=== PATIENT | male | born 1975 | race Caucasian/White ===

== ENCOUNTER 2017-09-05 13:47 | Emergency (ER) | payer OTHER, MEDICAID ==
--- NOTE | 2017-09-05 13:44 | EDPHY ---
H & P Constitutional: Initial Vital Signs Temperature (C) 36.7 C 09/05/17 13:55 Heart Rate 85 09/05/17 13:55 Respiratory Rate 18 09/05/17 13:55 Blood Pressure 148/85 H 09/05/17 13:55 O2 Sat (%) 94 09/05/17 13:55 O2 Delivery Mode Room Air Allergies/Adverse Reactions: Penicillins Allergy (Mild, Verified 03/28/15 01:34) Cephalosporins Allergy (Verified 05/29/15 11:47) haloperidol [From Haldol] Allergy (Verified 09/05/17 18:26) Home Medications: Medication Instructions Recorded Haloperidol Dec IM Q4wk 150 mg IM Q28D 05/04/15 [Haldol Decanoate 100 *IM Q4week*] Ibuprofen [Motrin (*)] 200 mg PO DAILY PRN 05/04/15 Divalproex ER [Depakote ER 500 MG 2,000 mg PO HS #120 tab 06/07/15 (*)] Levothyroxine [Synthroid 88 mcg 88 mcg PO DAILY10 #30 tab 06/07/15 (*)] [place] Carbonate ER [Lithobid 300 1,200 mg PO HS #120 tab 06/07/15 mg (*)] cloZAPine [Clozaril (*)] 350 mg PO HS #105 tab 06/07/15 traZODone [traZODONE 100MG (*)] 100 mg PO HS #30 tab 06/07/15 Medical Decision Making ED Course/Re-evaluation: CHIEF COMPLAINT: M1, off medication HISTORY OF PRESENT ILLNESS: The patient is a 41 y/o male arriving via EMS from the mental health crisis center on an M1 hold for decompensation and grave disability since stopping his medications. He has a history of schizophrenia and multiple mental health admissions to [facility]. He has been off his medications for an unclear amount of time. He was evaluated at the crisis center today and they report he was confused, disorganized, and laughing at inappropriate times. Patient denies any injuries denies loss of consciousness denies any recent trauma. Patient denies co-ingestion. Patient denies suicidal or homicidal behavior. REVIEW OF SYSTEMS: A 10 point review of systems was performed and is negative with the exception of the elements mentioned in the history of present illness. PHYSICAL EXAM: General Appearance: Alert, well hydrated, appropriate, and non-toxic appearing. Obese. Head: Atraumatic without scalp tenderness or obvious injury Eyes: Pupils equal, round, reactive to light and accommodation, EOMI, no trauma , no injection. Nose: Atraumatic, no rhinorrhea, clear. Throat: Mucus membranes moist. Neck: Supple Respiratory: No retractions, no distress, no wheezes, and no accessory muscle use. Lungs are clear to auscultation bilaterally. Cardiovascular: Regular rate and rhythm, no murmurs, rubs, or gallops. Good capillary refill all extremities. Gastrointestinal: Abdomen is soft, nontender, non-distended, no masses, no rebound, no guarding, no peritoneal signs. Musculoskeletal: Normal active ROM of all extremities, atraumatic. Neurological: Alert, appropriate, and interactive. The patient has non-focal cranial nerves, motor, sensory, and cerebellar exam. Skin: No rashes, good turgor, no nodules on palpation. PAST MEDICAL HISTORY: Schizophrenia PAST SURGICAL HISTORY: Noncontributory SOCIAL HISTORY: On state-ordered medications and treatments. Disabled. DIFFERENTIAL DIAGNOSIS: The differential diagnosis for the patient's depression included but was not limited to functional and major depression, situational depression, medication side effect, drugs, and alcohol abuse. MEDICAL DECISION MAKING: Patient is in no acute distress and is hemodynamically stable. We are awaiting psychiatric team's evaluation. Patient has known history of psychiatric disorders and is here for evaluation. (Yovanny Lopez) I took over care of this patient at 3:00 p.m.. This patient is on an M1 hold for schizophrenia. He has been noncompliant with his medications. He is gravely disabled. He is awaiting behavioral health evaluation at this time. During my emergency department course, the patient has had mild agitation. He is, out of his room. This is easily controlled. He is escorted back without incident by our security. At 3:50 p.m. he was given 10 mg of Zyprexa. At approximately 7:00 p.m. he again was out of his room and mildly agitated. This time he was given another 10 mg of Zyprexa as well as 10 mg of oral Ativan. 11:00 p.m.. No further issues under my care. The patient is to be admitted. Destination at this time is unclear. Care turned over to Dr. Arya Paiz. ( Alex Patino) Other Provider: 2230 care assumed by me from Dr. Patino pending placement. [address] Carroll pending placement. No issues during my care this patient overnight. (Emanuel Paiz) Care assumed at 6:45 a.m. with plan for psychiatric inpatient placement. Schizophrenia with acute psychosis and off medications. Repeat Zyprexa and Valium at 7:30 a.m. for increasing and recurrent agitation. Signed out to Kandace at 1500 with placement pending. (Bert Carroll) 4:15 p.m. the patient was accepted to [facility] by Dr. Vasquez. Transfer paperwork completed. (Wagner Jeronimo) - Data Points Laboratory Results: Laboratory Results 09/05/17 14:43 09/05/17 14:43 Medications Given: Discontinued Medications Diazepam (Valium) 10 mg PO EDNOW ONE Stop: 09/05/17 19:24 Last Admin: 09/05/17 19:31 Dose: 10 mg Diazepam (Valium) 5 mg PO EDNOW ONE Stop: 09/05/17 21:51 Last Admin: 09/05/17 21:54 Dose: 5 mg Diazepam (Valium) 5 mg PO EDNOW ONE Stop: 09/06/17 07:36 Last Admin: 09/06/17 07:46 Dose: 5 mg Nicotine (Nicoderm Cq) 21 mg TD EDNOW ONE Stop: 09/05/17 18:32 Last Admin: 09/05/17 18:45 Dose: 21 mg Olanzapine (Olanzapine) 10 mg PO ONCE ONE Stop: 09/05/17 15:49 Last Admin: 09/05/17 15:55 Dose: 10 mg Olanzapine (Olanzapine) 10 mg PO ONCE ONE Stop: 09/05/17 19:20 Last Admin: 09/05/17 19:31 Dose: 10 mg Olanzapine (Olanzapine) 10 mg PO ONCE ONE Stop: 09/06/17 07:35 Last Admin: 09/06/17 07:46 Dose: 10 mg Ondansetron HCl (Zofran Odt) 4 mg PO EDNOW ONE Stop: 09/05/17 22:08 Last Admin: 09/05/17 22:09 Dose: 4 mg Departure - Departure Disposition: Other Psych, Not [facility] Clinical Impression: Schizophrenia, Acute psychosis Condition: Good Referrals: NONE *PRIMARY CARE P,. [Primary Care Provider] - As per Instructions Report Scribed for: Yovanny Lopez Report Scribed by: Gale Avendaño Date of Report: 09/05/17 Time of Report: 13:48
[2017-09-05 14:50] LABS: PLATELET COUNT 338 10^3/uL (150-400)
[2017-09-05] MEDS ORDERED: OLANZapine 5 MG TAB PO ONE ×2 (15:48→19:19)
[2017-09-05] MEDS ORDERED: NICOTINE 21 MG/24 HR PATCH TD ONE (18:31)
[2017-09-05] MEDS ORDERED: DIAZEPAM 5 MG TAB PO ONE ×2 (19:23→21:50)
[2017-09-05] MEDS ORDERED: ONDANSETRON DISINTEGRATING 4 MG TAB PO ONE (22:07)
[2017-09-06] MEDS ORDERED: OLANZapine 5 MG TAB PO ONE (07:34)
[2017-09-06] MEDS ORDERED: DIAZEPAM 5 MG TAB PO ONE (07:35)
[2017-09-06 08:18] VITALS: TEMP 97.5
[2017-09-06 16:53] VITALS: RESP 16
[2017-09-06 17:21] VITALS: BP 145/92; PULSE 98; O2SAT 98
== END 2017-09-06 17:12 ==
LOC: EDUNIT#
DX: F20.9 Schizophrenia, unspecified (principal)
CPT/HCPCS: 80305; G0480

== ENCOUNTER 2018-04-09 04:45 | Inpatient (IN) | payer OTHER, MEDICAID ==
--- NOTE | 2018-04-09 04:56 | EDPHY ---
H & P Time Seen by Provider: 04/09/18 04:51 HPI/ROS: HPI CHIEF COMPLAINT: Acute psychosis. HISTORY OF PRESENT ILLNESS: 42-year-old male, history of schizoaffective disorder, patient was recently discharged from [facility] on March 16, and had a prolonged ICU course at [facility] with hypoxic respiratory failure, septic shock secondary to pneumonia, required ventilator, had a hypernatremia, acute renal failure requiring dialysis, lithium toxicity. Patient presents to the emergency room from the [facility], on an M1 hold for acute Psyhcosis According to EMS the patient was thought to be drunk initially when police made contact with him in [facility], they brought him to the [facility], where he was found to be not intoxicated, but acting strangely, had a mental health eval, and was placed on an M1 hold and brought here. The patient denies any current complaints upon arrival to the emergency room he states he feels fine. However does appear psychotic. Has pressured speech, and is responding to internal stimuli. Also, patient is on a State Certification. However was also placed on an M1 hold this evening. Still needs a formal eval. Past Medical History: Significant past medical history for hypertension, hyperlipidemia, GERD, schizoaffective disorder, bipolar recent hospitalization in February with respiratory failure, renal failure, requiring intubation, with lithium toxicity. Past Surgical History: No recent surgery Social History: Patient denies drugs or alcohol. Does smoke tobacco. Family History: Noncontributory ROS REVIEW OF SYSTEMS: Limited due to patient's mental state Exam Constitutional triage nursing summary reviewed, vital signs reviewed, awake/ alert. Eyes normal conjunctivae and sclera, EOMI, PERRLA. HENT normal inspection, atraumatic, moist mucus membranes, no epistaxis, neck supple/ no meningismus, no raccoon eyes. Respiratory clear to auscultation bilaterally, normal breath sounds, no respiratory distress, no wheezing. Cardiovascular rate normal, regular rhythm, no murmur, no edema, distal pulses normal. Gastrointestinal soft, non-tender, no rebound, no guarding, normal bowel sounds, no distension, no pulsatile mass. Genitourinary no CVA tenderness. Musculoskeletal no midline vertebral tenderness, full range of motion, no calf swelling, no tenderness of extremities, no meningismus, good pulses, neurovascularly intact. Skin pink, warm, & dry, no rash, skin atraumatic. Neurologic awake, alert and oriented x 3, AAOx3, moves all 4 extremities equally, motor intact, sensory intact, CN II-XII intact, normal cerebellar, normal vision, normal speech. Psychiatric acutely psychotic, responding to internal stimuli Heme/Lymph/Immune no lymphadenopathy. Differential Diagnosis: Includes but is not limited to in a particular order acute psychosis, bipolar disorder, schizoaffective disorder, electrolyte disturbance, infection Medical Decision Making: Plan for this patient blood draw for medical clearance , patient on M1 hold. He will need mental health evaluation. Most likely need inpatient psychiatric stabilization. Re-evaluation: 0700: Patient medically cleared. Here with Pyschosis. Signed over to Dr. Kelly at 7am. Pending MH Placement. Possibly 3N this morning. Source: Patient, EMS - Personal History Tetanus Vaccine Date: 2014 - Medical/Surgical History Hx Asthma: No Hx Chronic Respiratory Disease: No Hx Diabetes: No Hx Cardiac Disease: No Hx Renal Disease: No Hx Cirrhosis: No Hx Alcoholism: Yes Hx HIV/AIDS: No Hx Splenectomy or Spleen Trauma: No Other PMH: psych, schizoaffective/etoh, appy, oral surgery, tachycardia, hypothyroidism - Social History Smoking Status: Current every day smoker Constitutional: Initial Vital Signs Temperature (C) 36.5 C 04/09/18 05:13 Heart Rate 110 H 04/09/18 05:13 Respiratory Rate 18 04/09/18 05:13 Blood Pressure 136/92 H 04/09/18 05:13 O2 Sat (%) 94 04/09/18 05:13 O2 Delivery Mode Room Air Allergies/Adverse Reactions: Penicillins Allergy (Mild, Verified 03/28/15 01:34) Cephalosporins Allergy (Verified 05/29/15 11:47) haloperidol [From Haldol] Allergy (Verified 09/05/17 18:26) Home Medications: Medication Instructions Recorded Haloperidol Dec IM Q4wk 150 mg IM Q28D 05/04/15 [Haldol Decanoate 100 *IM Q4week*] Ibuprofen [Motrin (*)] 200 mg PO DAILY PRN 05/04/15 Divalproex ER [Depakote ER 500 MG 2,000 mg PO HS #120 tab 06/07/15 (*)] Levothyroxine [Synthroid 88 mcg 88 mcg PO DAILY10 #30 tab 06/07/15 (*)] [place] Carbonate ER [Lithobid 300 1,200 mg PO HS #120 tab 06/07/15 mg (*)] cloZAPine [Clozaril (*)] 350 mg PO HS #105 tab 06/07/15 traZODone [traZODONE 100MG (*)] 100 mg PO HS #30 tab 06/07/15 Medical Decision Making - Data Points Laboratory Results: Laboratory Results 04/09/18 04:45 04/09/18 04:45 04/09/18 04/09/18 04/09/18 05:10 04:45 04:45 WBC 10.27 10^3/uL H 10^3/uL (3.80-9.50) RBC 4.70 10^6/uL 10^6/uL (4.40-6.38) Hgb 14.7 g/dL g/dL (13.7-17.5) Hct 43.3 % % (40.0-51.0) MCV 92.1 fL fL (81.5-99.8) MCH 31.3 pg pg (27.9-34.1) MCHC 33.9 g/dL g/dL (32.4-36.7) RDW 16.8 % H % (11.5-15.2) Plt Count 274 10^3/uL 10^3/uL (150-400) MPV 9.0 fL fL (8.7-11.7) Neut % (Auto) 77.6 % H % (39.3-74.2) Lymph % (Auto) 13.8 % L % (15.0-45.0) [place] % (Auto) 5.9 % % (4.5-13.0) Eos % (Auto) 0.1 % L % (0.6-7.6) Baso % (Auto) 0.8 % % (0.3-1.7) Nucleat RBC Rel Count 0.0 % % (0.0-0.2) Absolute Neuts (auto) 7.97 10^3/uL H 10^3/uL (1.70-6.50) Absolute Lymphs (auto) 1.42 10^3/uL 10^3/uL (1.00-3.00) Absolute Monos (auto) 0.61 10^3/uL 10^3/uL (0.30-0.80) Absolute Eos (auto) 0.01 10^3/uL L 10^3/uL (0.03-0.40) Absolute Basos (auto) 0.08 10^3/uL 10^3/uL (0.02-0.10) Absolute Nucleated RBC 0.00 10^3/uL 10^3/uL (0-0.01) Immature Gran % 1.8 % H % (0.0-1.1) Immature Gran # 0.18 10^3/uL H 10^3/uL (0.00-0.10) Sodium 140 mEq/L mEq/L (135-145) Potassium 4.0 mEq/L mEq/L (3.3-5.0) Chloride 103 mEq/L mEq/L (97-110) Carbon Dioxide 28 mEq/l mEq/l (22-31) Anion Gap 9 mEq/L mEq/L (8-16) BUN 12 mg/dL mg/dL (7-23) Creatinine 1.0 mg/dL mg/dL (0.7-1.3) Estimated GFR > 60 Glucose 117 mg/dL H mg/dL (70-100) Calcium 9.4 mg/dL mg/dL (8.5-10.4) Urine Opiates Screen NEGATIVE (NEGATIVE) Urine Barbiturates NEGATIVE (NEGATIVE) Valproic Acid 38.6 mcg/mL L mcg/mL (50.0-150.0) Ur Phencyclidine Scrn NEGATIVE (NEGATIVE) Ur Amphetamine Screen NEGATIVE (NEGATIVE) U Benzodiazepines Scrn NEGATIVE (NEGATIVE) [place] < 0.2 mEq/L L mEq/L (0.6-1.2) Urine Cocaine Screen NEGATIVE (NEGATIVE) U Marijuana (THC) Screen NEGATIVE (NEGATIVE) Ethyl Alcohol < 10 mg/dL mg/dL (0-10) Departure - Departure Clinical Impression: Acute psychosis Condition: Fair Referrals: Patient,NotPresent [Primary Care Provider] - As per Instructions
[2018-04-09 05:06] LABS: PLATELET COUNT 274 10^3/uL (150-400)
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
--- NOTE | 2018-04-09 08:17 | ASMTTCLDSP ---
TLC Discharge Disposition Disposition: Answers: Admit Disposition Notes: Notes: Admit 3N. Discharge Concerns/Recommendations: Notes: In consultation with [facility] ED physician, Sundar Garcia MD and on-call psychiatrist, Odin Trent MD, both concurred that pt appears to meet 27-65 criteria requiring psychiatric hospitalization as pt appears to gravely disabled due to a mental illness condition. Pt was given (but declined to sign) the 3N prohibited belongings list while in the ED. Was patient given the Answers: Yes Inpatient Behavioral Health Prohibited Belongings List while in the ED? For inpatient Odin Trent MD admission, the following psychiatrist agreed to accept patient for admission to Behavioral Health ([facility]): Type of Hold: Answers: M1/72-hour Hold Hold initiated by: Answers: Psychiatrist Date Signed: 04/09/2018 08:16 AM Electronically Signed By:Tio Sun
--- NOTE | 2018-04-09 11:43 | ASMTBHMTP ---
Master Treatment Plan Master Treatment Plan Answers: Mood Instability with for: Psychosis Date: 04/09/2018 Diagnosis on Admission: Schizoaffective Disorder, Bipolar Type 295.70 (F25.0) Expected length of stay: 5-7 DAYS Reason for admission: Notes: The patient stated, "Bipolar d/o. Schizophrenia... Mood swings, headaches, dreams... Halfway 10 days... My original name is Rory Tolbert." Following his name, the patient listed several numbers. The patient denied any charges. During his admission to the unit, he reported his reason as "enthusiasm for changing the past." He also stated that he wanted to "become superman." The patient's speech was nonsensical, delayed, and accompanied by occasional laughter. Patient's stated presenting problems: Notes: unable to assess Patient's goals for treatment: Notes: Unable to assess; the patient reported to "...Walk the dog." Patient's strengths: Notes: The patient stated, riding bikes and walking down..." The patient's speech was mumbled, garbled, and disorganized. Identify supports outside of hospital: Notes: The patient stated, "[facility]." His reported provider is Jesuista Poon MD. This pattern chart writer unable to assess whether the patient has a caser or therapist OP. Discharge criteria: Notes: The patient will demonstrate more stable mood by discharge. Initial disposition plan/considerations: Notes: The patient was observed laughing as he stated, "[place], [place]." This pattern chart writer asked the patient why he wanted to go to [place] and he responded "...This afternoon." Master Treatment Plan Required Signatures Psychiatrist signature: Answers: Odin Trent MD: RN on-shift signature: Answers: RN: Patient signature: Answers: Patient: Date Signed: 04/09/2018 11:37 AM Electronically Signed By:Noreen Mcgarry
[2018-04-09] MEDS: NICOTINE POLACRILEX 2 MG GUM B PRN (12:48)
[2018-04-09] MEDS ORDERED: MAG HYDROX/AL HYDROX/SIMETH 30 ML UDCUP PO PRN (12:56)
[2018-04-09] MEDS ORDERED: ACETAMINOPHEN 325 MG TAB PO PRN (12:56)
[2018-04-09] MEDS ORDERED: OLANZapine DISINTEGR 10 MG TAB PO PRN (12:56)
[2018-04-09] MEDS: LORazepam 0.5 MG TAB PO PRN (15:57)
--- NOTE | 2018-04-09 16:23 | BCON ---
INTERNAL MEDICINE CONSULTATION DATE OF CONSULTATION: 04/09/2018 REFERRING PHYSICIAN: Odin Trent MD REASON FOR REFERRAL: Medical clearance for inpatient behavioral health stay. HISTORY OF PRESENT ILLNESS: This patient presented to the [facility] Emergency Department today early in the morning. He had been at the alcohol recovery center for presumed withdrawal, but was noted to be psychotic rather than in alcohol withdrawal, so he was transferred to the emergency department for further evaluation. He appeared psychotic in the emergency department with pressured speech and responding to internal stimuli. He was evaluated by the mental health team and admitted for further psychiatric care. PAST MEDICAL HISTORY: 1. Schizoaffective disorder. 2. Likely COPD. 3. Pneumonia with hypoxic respiratory failure, approximately 1-2 months ago. 4. [place] toxicity. 5. Obesity. 6. Gastroesophageal reflux disorder. 7. Hypertension. PAST SURGICAL HISTORY: He has not any surgeries. MEDICATIONS: 1. Cogentin. 2. Clozaril. 3. Haldol decanoate. 4. Valproic acid. 5. Budesonide/formoterol inhaler. 6. Fluticasone inhaler, but this may have been nasal. 7. MiraLAX. 8. Senna. 9. Omeprazole. 10. Levothyroxine. 11. Fish oil. 12. Ipratropium. 13. Furosemide. ALLERGIES: Listed to penicillins, cephalosporins and haloperidol. However, the case loader operator's note reports that he may not truly have a penicillin and cephalosporin allergy. SOCIAL HISTORY: He lives alone in [address] in [place]. He is a smoker. He has a history of polysubstance abuse. He is not working due to psychiatric disability. FAMILY HISTORY: Noncontributory. REVIEW OF SYSTEMS: Limited. His responses are often off topic and difficult to understand. He denies cough or dyspnea. He denies pain, fever, or chills. PHYSICAL EXAM: VITAL SIGNS: Blood pressure is 139/101, heart rate is 115, respiratory rate is 14, oxygen saturation is 94% on room air. Temperature is 36.8 degrees centigrade. His weight is 129.3 kg for a body mass index of 31. GENERAL: This is an unkempt, obese man, sitting up on his bed, cooperative and in no acute distress. HEENT: Extraocular movements are intact. Pupils are equal, round, reactive to light. Mucous membranes are moist. Dentition is in good condition. He has a slightly crowded airway, Mallampati class 2. He has a very congested sounding voice. NECK: Supple. HEART: Regular rate and rhythm with no murmurs, rubs, or gallops. LUNGS: Clear to auscultation bilaterally. ABDOMEN: Obese and benign. EXTREMITIES: There is no cyanosis, clubbing, or edema. NEUROLOGIC: He is alert. Orientation was not checked. Cranial nerves 2-12 are grossly intact. There is no focal weakness. Sensation is intact to light touch and gait is within normal limits. LABORATORY STUDIES: Drawn in the emergency department: CBC showed an elevated white blood cell count at 10.27. It was predominantly neutrophils. There was a slight left shift with 1.8% immature granulocytes. Otherwise, it was overall within normal limits. Serum chemistry showed an elevated glucose at 117, otherwise renal function was normal and electrolytes were normal. Toxicology screen in the serum showed measurable but subtherapeutic valproic acid level at 38.6. There was no lithium and ethyl alcohol was negative. Toxicology screen in the urine was negative for any substances of abuse. ASSESSMENT/RECOMMENDATIONS: 1. Mental health issues pending further evaluation and management per Psychiatry and the mental health team. 2. Obesity, consider exercising caution regarding medications which could cause further weight gain, however, his psychosocial stabilization takes priority at present. 3. Tobacco dependence syndrome. He was encouraged to stop smoking. 4. Hypertension, previously on lisinopril. Blood pressure is slightly elevated and not mandating treatment at present. If he is not to be on lithium in the future, lisinopril would be a good choice for him. Otherwise, would recommend amlodipine for its relatively few side effects and a few drug interactions. Would start a low-dose, for instance, 2.5 mg daily if he continues to have elevated blood sugars. 5. Tachycardia of unclear etiology. He may have some dehydration, though this was not reflected on his basic metabolic profile. 6. History of asthma versus COPD. He had no hypoxia. Consider restarting inhalers. Would advise the budesonide/formoterol combination plus p.r.n. ipratropium. Would not concurrently use fluticasone inhaler unless he was using it as a nasal preparation. 7. Tachycardia of unclear etiology. Advises monitoring fluid intake. If it persists, then further evaluation can be carried out. His heart rate was regular, so it is unlikely that he has atrial fibrillation. I see no medical contraindications to this patient's continued stay on the inpatient behavioral health unit or to any psychiatric medications or procedures. Thank you very much for including me in the care of this patient and please do not hesitate to contact me or the hospitalist service should there be need for further medical evaluation. /[id number]/MODL MTDD
--- NOTE | 2018-04-09 17:18 | BAPA ---
DATE OF SERVICE: 04/09/2018 REASON FOR ADMISSION: The patient is a 42-year-old male with a history of schizoaffective disorder. He presented to our emergency department via ambulance after he had initially gone to the walk-in clinic through [facility]. I discussed the case with Dr. Poon, who is al s outpatient psychiatrist, and she stated that he had been declining for about a week, and they could not really understand why. He had been more disorganized and forgetful, and they did some home visi ts with him. His home was a little more untidy than usual as he typically keeps a very neat apartmen t. They also did notice some alcohol containers in the home, which would represent a change from his recent sobriety. They did not, however, identify this as a primary problem. The patient was to [facility] over for his daily medications, and when he arrived, he was quite disorganized. They took him to [facility] walk-in clinic in order to perhaps watch him overnight, he became increasingly disorganized. He w as unable to sit still and appeared confused, and they brought him to the emergency department. They were concerned that perhaps he had some metabolic issues as he had presented in a similar way about 6 weeks ago and actually had pneumonia, sepsis and renal failure. This time, however, he checked out medically with normal labs and no referable complaints. He was then evaluated by [facility], who found him to be very disorganized, unable to give any meaningful history or really communicate in a meaningful way. Placed him on an M1 hold and then transferred him for further evaluation. This morning, he is somewhat agitated, having a hard time sitting still. He comes in and out of his room and takes off his hospital gown, unsnapping it and then being unable to put it back together. I attempted to help him with this, and I could not put it back together either, so it is confusing, but he seemed to be a bit more confused. We were able to get him a shirt after he walked out on the unit wearing only a p air of shorts. He interacted well with me, being able to speak in some sentences intelligibly, thoug h was not particularly able to stay on task or discuss his treatment, per se. He is unable to tell m e exactly why he is here or give me any opinion from his viewpoint what is going on with him. He ind icates that he wants to be compliant with his medications. I spoke with Dr. Poon at length, and we s orted out his current outpatient medications and will restart those. PAST PSYCHIATRIC HISTORY: Significant for a long history of severe mental illness. He has had upwar ds of 20 admissions to [facility] and a number of admissions to our facility as well. His last admis chemo to [facility] was in January 2014, when he was having some suicidal thoughts. He has 3 previous fritz icide attempts. He has had numerous previous medication trials, and the chart lists prior treatments with Stelazine, Zyprexa, Trilafon, Abilify, Valium, lithium, Eskalith and Ativan. It is of note cristino t he was on lithium for a long time until his renal failure 6 weeks ago, at which time it was stopped . ALLERGIES: Listed to penicillin, cephalosporins, and haloperidol. CURRENT MEDICATIONS: Include Synthroid 125 mcg daily, lisinopril 5 mg daily, haloperidol decanoate 2 00 mg every 4 weeks (last given on 04/07/2018), omeprazole 20 mg daily, Symbicort 1 puff b.i.d., flut icasone 100 mcg daily, and Atrovent 2.5 mL every 6 hours. PAST MEDICAL HISTORY: Significant for recent pneumonia, renal failure, and sepsis. He has a history of hypertension, obesity and COPD. SOCIAL HISTORY: Patient is single. He lives alone in supportive housing in [place]. He [facility] on a daily basis through the ACT team in order to monitor his medica tions and condition. He apparently cares for himself well when he is well, though may recently have been deteriorating. He grew up in [place] and graduated high school from [employer] [employer]. The albina washington's parents and his brother apparently are active in his life, though the extent of this is unkn own to me. The patient receives social security disability income. SUBSTANCE ABUSE HISTORY: Patient has a history of previous heavy alcohol use, though apparently had been sober for some time. He also has used cocaine in the past, but not since 2014. He also has a h istory of methamphetamine use, though it is unclear the status of this. He smokes at least 3 packs o f cigarettes per day. FAMILY HISTORY: Patient's brother and father are reported to have "some mental illness." Exact natu re of this is unknown. ADMISSION LABORATORY: CBC shows a white count elevated at 10.27, with neutrophils up at 77.6%, other cole normal. Serum chemistries are normal, with the exception of a nonfasting glucose of 117. Urina lysis shows no substances of abuse. [place] was less than detectable, and Depakote was 38.6. Alcoho l was undetectable. MENTAL STATUS EXAMINATION: Reveals an obese, poorly groomed male. He is somewhat agitated , pacing, and unable to sit still. He makes good eye contact and seems to recognize me from previous admissions. His speech is somewhat over produced, mumbled, and low in tone. He is difficult to und erstand, but is forming intelligible sentences at times. His affect is blunted, stable, and appropri ate. His mood is described as "just fine." His thought process is disorganized. His thought conten t reveals no overt psychosis, though is very difficult to say. There may be some internal preoccupat ion and/or hallucination. He does not answer questions in regard to orientation or memory. He does not appear to be overtly delirious, though a low-level delirium is something that Dr. Poon questions. He voices no thoughts of suicide, homicide, or violence. His insight and judgment appear to be imp aired. IMPRESSION: Schizoaffective disorder, bipolar type, most recent episode manic, severe, with psychosi s; possible low-level delirium; multiple medical issues; recent severe life-threatening medical condi tions; chronic illness, recurrent illness. The patient is a 42-year-old male with a history of chronic and severe mental illness. He presents at this time having decompensated with no specific identifiable cause. He may have relapsed on alcohol, but it is unclear whether this would really cause this level of decompensation. He has been, by all reports, compliant with his medications, or at least as compliant as normal. The lithiu m was discontinued when he was at [facility] recently, and Haldol was increased to 200 mg decanoate monthly. Clozapine was decreased from 350 to 300, and Dr. Poon states that Dr. Ashu abbottes that he is extremely sensitive to his clozapine being decreased. Dr. Poon does not believe t he Depakote is a particularly integral part of his overall stability, and his current dose is certain ly below the standard anti-manic dose. It is likely complimentary and will leave it where it is for now. PLAN: 1. [facility] hold. I believe that he has a lo ng-term certification and will be transferred, and we will change his legal status when we receive th at paperwork. 2. Continue patient's outpatient medications as listed above, increasing the clozapine to [address] Gu's input in regard to his physical status and the need for any followup tests, in cluding chest x-ray. 4. Estimated length of stay is 5-7 days. /[id number]/MODL
[2018-04-09] MEDS: FLUTICASONE/SALMETER 250/50MCG DISKUS IH SCH (20:03)
[2018-04-09] MEDS: IPRATROPIUM HFA INHALER IH SCH (20:03)
[2018-04-09] MEDS: cloZAPine 100 MG TAB PO SCH (20:08)
[2018-04-09] MEDS ORDERED: FLUTICASONE/SALMETER 100/50MCG DISKUS IH SCH (21:00)
[2018-04-09] MEDS ORDERED: BUDESONIDE/FORMOTEROL 160/4.5 60 PUFFS/MDI IH SCH (21:00)
[2018-04-10] MEDS: IPRATROPIUM HFA INHALER IH SCH ×4 (05:18→21:12)
[2018-04-10] MEDS: LEVOTHYROXINE 125 MCG TAB PO SCH (05:18)
[2018-04-10] MEDS: LORazepam 0.5 MG TAB PO PRN (08:34)
[2018-04-10] MEDS: FLUTICASONE/SALMETER 250/50MCG DISKUS IH SCH ×2 (08:51→21:12)
[2018-04-10] MEDS: TIOTROPIUM INHALER 18 MCG/DOSE 5 DOSE/MDI IH SCH (08:52)
[2018-04-10] MEDS: LISINOPRIL 5 MG TAB PO SCH (08:54)
[2018-04-10] MEDS: PANTOPRAZOLE SODIUM 40 MG TAB PO SCH (08:54)
--- NOTE | 2018-04-10 09:37 | PDMN ---
Medical Necessity Medical necessity: [facility] [id number] Schizophrenia Spectrum Disorders, Adult: Inpatient Care: 42 y/o w/ schizoaffective d/o, bipolar type, most recent episode manic, severe, w/ psychosis, possible low level delirium, multi pmedical issues, recent severe life threatening medical conditions, chronic illness, recurrent illness. M1 hold.
[2018-04-10] MEDS: NICOTINE POLACRILEX 2 MG GUM B PRN (11:11)
--- NOTE | 2018-04-10 11:58 | ASMTCMCOM ---
CM Note CM Note Notes: Pt. reports feeling "okay" today. Pt. stated he didn't sleep so well. Pt. stated he woke up angry, adding sometimes he confuses his dreams and reality. Pt. stated he is eating well. Pt. reports no issues with his current medications. Pt. stated he has attended some groups. Pt. denied SI, HI, and AVH. Pt. reports feeling paranoia "about not leaving here". Pt. was more oriented today verses yesterday, but not fully oriented yet. Pt. presents as alert, calm, friendly with staff, disorganized, and lacking insight. Staff report pt. sleeping 6 hours and being medication complaint. Pt. accidentally walked into the wrong room last night. Pt. has been given a new room with several name signs on the door. Pt. became upset this morning during breakfast, but was able to eventually be redirected. Date Signed: 04/10/2018 11:48 AM Electronically Signed By:Urvashi Qiu
--- NOTE | 2018-04-10 14:54 | SOAPPROG ---
SOAP Progress Note Assessment/Plan: Assessment: Plan: 04/10/18 14:54 Psychosis: Improving. CCM. Subjective: Pt seen, discussed with staff. Remains disorganized. Was reportedly angry and verbally aggressive this morning towards staff. He is calmer when I interview him, able to discuss his treatment. Voices no c/o's. Compliant with meds. Objective: Vital Signs Temp Pulse Resp BP Pulse Ox 36.4 C 117 H 16 131/80 H 91 L 04/10/18 02:46 04/10/18 02:46 04/10/18 02:46 04/10/18 02:46 04/10/18 02:46 MSE: Disheveled, agitated. Able to sit and talk for 10-15". Speech remains rapid, mumbled. Affect is labile, angry, laughing, crying. Mood is "good." TP disorganized. TC reveals paranoia, AH's/internal preoccupation. - Time Spent With Patient Time Spent With Patient: 15" ICD10 Worksheet Patient Problems: Problems Problem Status Onset Acute psychosis Acute Abscess of neck Active Hypothyroidism Active
[2018-04-10] MEDS: cloZAPine 100 MG TAB PO SCH (21:10)
[2018-04-11] MEDS: IPRATROPIUM HFA INHALER IH SCH ×4 (05:34→20:38)
[2018-04-11] MEDS: LEVOTHYROXINE 125 MCG TAB PO SCH (05:35)
[2018-04-11] MEDS: PANTOPRAZOLE SODIUM 40 MG TAB PO SCH (08:39)
[2018-04-11] MEDS: LISINOPRIL 5 MG TAB PO SCH (08:39)
[2018-04-11] MEDS: FLUTICASONE/SALMETER 250/50MCG DISKUS IH SCH ×3 (08:40→20:37)
[2018-04-11] MEDS: TIOTROPIUM INHALER 18 MCG/DOSE 5 DOSE/MDI IH SCH (08:40)
--- NOTE | 2018-04-11 14:23 | SOAPPROG ---
SOAP Progress Note Assessment/Plan: Assessment: 42yo obese CM with long hx of Schizoaffective d/o and mult psychiatric hospitalizations. Noted to be psychotic recently and admitted for restabilization. Was medically hospitalized last month with Li toxicity, acute respiratory and renal failure. 04/11/18 14:28 slept 7hr MSE: Disheveled, morbid obesity, cooperative with interview. noted to be diaphoretic and when this was noted, pt wiped forehead and abruptly asked "did you just do that to me?" admits feeling a bit hot. denied any other physical complaints of SOB or CP, altho occasionally burping, speech at times incr rate and mumbles but intelligible with effort and will sometimes repeat response for clarification. affect full, mood "positive", thoughts disorganized, paranoid, and noted responding to internal stimuli on unit while walking around, although not during interview. talked about his identity not being a secret, uses 3 different names, and feels scared to go home "because I sleep walk and snore", but does not feel he needs to be in hospital- "they are experimenting with me because I lied about my psychosis". denies SI or thoughts to harm others. i/i both impaired. PLAN: continue current meds- Clozapine monitor VS Qshift. has multiple medical problems, not always using scheduled inhalers, has been tachycardic denies physical complaints, but has cardiac and respiratory risks Objective: Vital Signs Temp Pulse Resp BP Pulse Ox 36.4 C 117 H 16 131/80 H 91 L 04/10/18 02:46 04/10/18 02:46 04/10/18 02:46 04/10/18 02:46 04/10/18 02:46 Medications Generic Name Dose Route Start Last Admin Trade Name Freq PRN Reason Stop Dose Admin Ipratropium [place] 2 puffs 04/09/18 21:00 04/11/18 12:52 Atrovent Hfa IH 10/06/18 20:59 Not Given QID BARRETT Fluticasone/Salmeterol 1 puffs 04/09/18 21:00 04/11/18 12:52 Advair IH 10/06/18 20:59 Not Given BID BARRETT Clozapine 350 mg 04/09/18 21:00 04/10/18 21:10 Clozaril PO 10/06/18 20:59 350 mg HS BARRETT Levothyroxine Sodium 125 mcg 04/10/18 06:00 04/11/18 05:35 Synthroid PO 10/07/18 05:59 Not Given DAILY AT 6AM BARRETT Lisinopril 5 mg 04/10/18 09:00 04/11/18 08:39 Zestril PO 10/07/18 08:59 5 mg DAILY BARRETT Olanzapine 10 mg 04/09/18 12:56 04/10/18 08:34 Zyprexa Zydis PO 10/06/18 12:55 10 mg Q4H PRN Agitation, Psychosis Pantoprazole Sodium 40 mg 04/10/18 09:00 04/11/18 08:39 Protonix PO 10/07/18 08:59 40 mg DAILY BARRETT Tiotropium [place] 18 mcg 04/10/18 09:00 04/11/18 08:40 Spiriva Handihaler IH 10/07/18 08:59 1 inh DAILY BARRETT - Time Spent With Patient Time Spent With Patient: 20min - Pending Discharge Pending Discharge Within 24 Hours: No Pending Discharge Within 48 Hours: No ICD10 Worksheet Patient Problems: Problems Problem Status Onset Acute psychosis Acute Abscess of neck Active Hypothyroidism Active
[2018-04-11] MEDS: NICOTINE POLACRILEX 2 MG GUM B PRN (15:36)
[2018-04-11] MEDS: cloZAPine 100 MG TAB PO SCH (20:37)
[2018-04-11] MEDS: LORazepam 0.5 MG TAB PO PRN (21:35)
[2018-04-12] MEDS: IPRATROPIUM HFA INHALER IH SCH ×4 (06:00→21:09)
[2018-04-12] MEDS: PANTOPRAZOLE SODIUM 40 MG TAB PO SCH (08:19)
[2018-04-12] MEDS: LISINOPRIL 5 MG TAB PO SCH (08:19)
[2018-04-12] MEDS: FLUTICASONE/SALMETER 250/50MCG DISKUS IH SCH ×2 (09:49→21:08)
[2018-04-12] MEDS: TIOTROPIUM INHALER 18 MCG/DOSE 5 DOSE/MDI IH SCH (09:50)
[2018-04-12] MEDS: LEVOTHYROXINE 125 MCG TAB PO SCH (09:52)
--- NOTE | 2018-04-12 12:31 | ASMTCMCOM ---
CM Note CM Note Notes: Pt. reports feeling "Good. An 8 or 9". Pt. stated he slept "real good", adding "waking up was rough" but pt. couldn't explain why. Pt. stated he would like a larger serving at meals. Pt. stated "I don't know" when asked if he has been going to groups. Pt. reports no issues with his current medications. Pt. denied SI, HI, and paranoia. Pt. stated he is scared of blacking out when asked about any AVH. Pt. presents as alert, difficult to understand as he mumbles, good eye contact, and with a mostly pleasant demeanor. Staff report pt. sleeping 7.5 hours and being medication complaint. Date Signed: 04/12/2018 12:31 PM Electronically Signed By:Urvashi Qiu
[2018-04-12] MEDS: cloZAPine 100 MG TAB PO SCH (20:59)
[2018-04-12] MEDS: LORazepam 0.5 MG TAB PO PRN (22:00)
--- NOTE | 2018-04-12 22:53 | SOAPPROG ---
SOAP Progress Note Assessment/Plan: Assessment: 42yo obese CM with long hx of Schizoaffective d/o and mult psychiatric hospitalizations. Noted to be psychotic recently and admitted for restabilization. Was medically hospitalized last month with Li toxicity, acute respiratory and renal failure. 04/11/18 14:28 slept 7hr MSE: Disheveled, morbid obesity, cooperative with interview. noted to be diaphoretic and when this was noted, pt wiped forehead and abruptly asked "did you just do that to me?" admits feeling a bit hot. denied any other physical complaints of SOB or CP, altho occasionally burping, speech at times incr rate and mumbles but intelligible with effort and will sometimes repeat response for clarification. affect full, mood "positive", thoughts disorganized, paranoid, and noted responding to internal stimuli on unit while walking around, although not during interview. talked about his identity not being a secret, uses 3 different names, and feels scared to go home "because I sleep walk and snore", but does not feel he needs to be in hospital- "they are experimenting with me because I lied about my psychosis". denies SI or thoughts to harm others. i/i both impaired. PLAN: continue current meds- Clozapine monitor VS Qshift. has multiple medical problems, not always using scheduled inhalers, has been tachycardic denies physical complaints, but has cardiac and respiratory risks 04/12/18 15:27 slept 7.5hr. continues mumbling at times, wearing shirt backwards this AM, seemed he may have had some mild trouble swallowing at breakfast this AM but staff felt he was eating fast, and occ refuses scheduled inhalers. eating meals , attending some groups disheveled, unkempt, obese, ambulating steady, good eye contact, readily engaging, speech was intelligible although mumbled at times, mood "I feel good" . affect full, tp/tc- goal directed, but then with illogical statements at times ; denied current AH/VH, but noted with + int stim and talking in audible voice when responding to IS in halls ("He wants you to cut him open in little pieces" as he went down abernathy and entered his room); denied SI or thoughts to harm others, t i/j poor. Denied physical c/o except GERD/reflux. Denied SOB/CP. No diaphoresis noted today. Continues tachycardic. Denied s/e to meds . Clozapine and Depakote mentioned (altho presently just on Cloz. 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 altho noted to not have been restarted on depakote PLAN: cont Clozapine 350mg qhs. does seem to be improving steadily psychiatrically consider ST for swallow eval if further problems noted despite direction to eat more slowly, aspiration risks VS Qshift. has multiple medical problems, not always using scheduled inhalers, has been tachycardic denies physical complaints, but has cardiac and respiratory risks sleep study requested Objective: Vital Signs Temp Pulse Resp BP Pulse Ox 36.8 C 114 H 12 128/87 H 94 04/11/18 14:51 04/12/18 18:26 04/12/18 18:26 04/12/18 18:26 04/12/18 18:26 - Time Spent With Patient Time Spent With Patient: 15min - Pending Discharge Pending Discharge Within 24 Hours: No Pending Discharge Within 48 Hours: No ICD10 Worksheet Patient Problems: Problems Problem Status Onset Acute psychosis Acute Abscess of neck Active Hypothyroidism Active
[2018-04-13] MEDS: IPRATROPIUM HFA INHALER IH SCH ×4 (06:26→21:58)
[2018-04-13] MEDS: PANTOPRAZOLE SODIUM 40 MG TAB PO SCH (08:17)
[2018-04-13] MEDS: LISINOPRIL 5 MG TAB PO SCH (08:17)
[2018-04-13] MEDS: FLUTICASONE/SALMETER 250/50MCG DISKUS IH SCH ×2 (08:18→21:57)
[2018-04-13] MEDS: TIOTROPIUM INHALER 18 MCG/DOSE 5 DOSE/MDI IH SCH (08:18)
[2018-04-13] MEDS: LEVOTHYROXINE 125 MCG TAB PO SCH (09:55)
--- NOTE | 2018-04-13 13:58 | ASMTCMCOM ---
CM Note CM Note Notes: CC checking in with ct. who said that he is doing fine. Ct. has been spending time in the milieu interacting with others. Date Signed: 04/13/2018 01:57 PM Electronically Signed By:Susan Duarte
--- NOTE | 2018-04-13 15:59 | SOAPPROG ---
SOAP Progress Note Assessment/Plan: Assessment: Most recent note from Dr. Couch: Assessment: 42yo obese CM with long hx of Schizoaffective d/o and mult psychiatric hospitalizations. Noted to be psychotic recently and admitted for restabilization. Was medically hospitalized last month with Li toxicity, acute respiratory and renal failure. 04/11/18 14:28 slept 7hr MSE: Disheveled, morbid obesity, cooperative with interview. noted to be diaphoretic and when this was noted, pt wiped forehead and abruptly asked "did you just do that to me?" admits feeling a bit hot. denied any other physical complaints of SOB or CP, altho occasionally burping, speech at times incr rate and mumbles but intelligible with effort and will sometimes repeat response for clarification. affect full, mood "positive", thoughts disorganized, paranoid, and noted responding to internal stimuli on unit while walking around, although not during interview. talked about his identity not being a secret, uses 3 different names, and feels scared to go home "because I sleep walk and snore", but does not feel he needs to be in hospital- "they are experimenting with me because I lied about my psychosis". denies SI or thoughts to harm others. i/i both impaired. PLAN: continue current meds- Clozapine monitor VS Qshift. has multiple medical problems, not always using scheduled inhalers, has been tachycardic denies physical complaints, but has cardiac and respiratory risks 04/12/18 15:27 slept 7.5hr. continues mumbling at times, wearing shirt backwards this AM, seemed he may have had some mild trouble swallowing at breakfast this AM but staff felt he was eating fast, and occ refuses scheduled inhalers. eating meals , attending some groups disheveled, unkempt, obese, ambulating steady, good eye contact, readily engaging, speech was intelligible although mumbled at times, mood "I feel good" . affect full, tp/tc- goal directed, but then with illogical statements at times ; denied current AH/VH, but noted with + int stim and talking in audible voice when responding to IS in halls ("He wants you to cut him open in little pieces" as he went down abernathy and entered his room); denied SI or thoughts to harm others, t i/j poor. Denied physical c/o except GERD/reflux. Denied SOB/CP. No diaphoresis noted today. Continues tachycardic. Denied s/e to meds . Clozapine and Depakote mentioned (altho presently just on Cloz. 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 altho noted to not have been restarted on depakote PLAN: cont Clozapine 350mg qhs. does seem to be improving steadily psychiatrically consider ST for swallow eval if further problems noted despite direction to eat more slowly, aspiration risks VS Qshift. has multiple medical problems, not always using scheduled inhalers, has been tachycardic denies physical complaints, but has cardiac and respiratory risks sleep study requested Plan: 04/13/18 15:53 1. No issues with swallowing noted this AM. Ate 100% of meals w/o difficulty. 2. Slept 5 hrs last night. 3. Patient continues to present confused, disorganized, unable to explain why he 's in hospital. 4. Cont current meds Subjective: MD observed patient playing a game of cards with peers. He did not understand the rules of the game and needed to have them explained to him multiple times. Peers had to tell patient to hold cards closer so peers couldn't see them and to explain what the different suits of cards meant. Eventually patient got frustrated and started tossing cards in air rather than participate in game. Patient presents pleasant and calm. When MD asked what name he would like to be called, patient said, "whatever is most efficient for your records." MD does not observe patient talking to himself or saying outrageous things as noted over w/e by Dr. Couch, which may be a sign that psychosis is improving. However , MD wonders about possible cognitive deficits given his lack of comprehension and inability to explain how he got to hospital. When asked directly about why he was admitted, patient said, "my eyes were crossed." Objective: Vital Signs Temp Pulse Resp BP Pulse Ox 36.8 C 120 H 20 134/90 H 90 L 04/13/18 06:58 04/13/18 06:58 04/13/18 06:58 04/13/18 06:58 04/13/18 06:58 MSE: Affect: Calm, pleasant Mood: "OK" TP: Disorganized, confused, illogical TC: No SI/HI Insight/Judgment: Impaired - Time Spent With Patient Time Spent With Patient: 15" - Pending Discharge Pending Discharge Within 24 Hours: No Pending Discharge Within 48 Hours: No ICD10 Worksheet Patient Problems: Problems Problem Status Onset Acute psychosis Acute Abscess of neck Active Hypothyroidism Active
[2018-04-13] MEDS: cloZAPine 100 MG TAB PO SCH (21:44)
[2018-04-13] MEDS: LORazepam 0.5 MG TAB PO PRN (21:50)
[2018-04-14] MEDS: IPRATROPIUM HFA INHALER IH SCH ×4 (06:37→20:01)
[2018-04-14] MEDS: FLUTICASONE/SALMETER 250/50MCG DISKUS IH SCH ×2 (08:50→20:02)
[2018-04-14] MEDS: PANTOPRAZOLE SODIUM 40 MG TAB PO SCH (08:50)
[2018-04-14] MEDS: TIOTROPIUM INHALER 18 MCG/DOSE 5 DOSE/MDI IH SCH (08:50)
[2018-04-14] MEDS: LISINOPRIL 5 MG TAB PO SCH (09:53)
[2018-04-14] MEDS: LEVOTHYROXINE 125 MCG TAB PO SCH (10:07)
--- NOTE | 2018-04-14 13:41 | SOAPPROG ---
SOAP Progress Note Assessment/Plan: Assessment: Plan: 04/10/18 14:54 Psychosis: Improving. CCM. 04/14/18 13:41 Psychosis: Continued improvement. Remains disorganized. Will confer with [facility] to see if ACT team could assess him this week. Subjective: Pt seen, discussed with staff. Interviewed in Treatment Team meeting. He reports feeling "really good, totally normal." States he slept well last night (>6hrs) and is ready to go home. He is agreeable to meeting with ACT team here prior to d/c. Offers no c/o's except wanting more food. Very focused on "ballpark food" such as hotdogs and cheeseburgers. Objective: Vital Signs Temp Pulse Resp BP Pulse Ox 36.3 C 110 H 16 123/90 H 90 L 04/14/18 06:45 04/14/18 06:45 04/14/18 06:45 04/14/18 06:45 04/14/18 07:42 MSE: Somewhat activated, fidgety, but engaging, coop. Affect is constricted, stable. Mood is "good." TP linear for brief periods with some tangentiality - overall improved organization. TC reveals continued bizarre and paranoid thoughts, less RIS. - Time Spent With Patient Time Spent With Patient: 25" ICD10 Worksheet Patient Problems: Problems Problem Status Onset Acute psychosis Acute Abscess of neck Active Hypothyroidism Active
[2018-04-14] MEDS: cloZAPine 100 MG TAB PO SCH (20:00)
[2018-04-14] MEDS: LORazepam 0.5 MG TAB PO PRN (20:09)
[2018-04-14] MEDS: MAGNESIUM HYDROXIDE 30 ML UDCUP PO PRN (21:59)
[2018-04-14] MEDS ORDERED: POLYETHYLENE GLYCOL 3350 17 GM PKT PO PRN (22:23)
[2018-04-15] MEDS: IPRATROPIUM HFA INHALER IH SCH ×4 (05:47→20:41)
[2018-04-15] MEDS: DOCUSATE SODIUM 100 MG CAP PO SCH ×2 (08:32→20:41)
[2018-04-15] MEDS: PANTOPRAZOLE SODIUM 40 MG TAB PO SCH (08:32)
[2018-04-15] MEDS: LISINOPRIL 5 MG TAB PO SCH (08:32)
[2018-04-15] MEDS: TIOTROPIUM INHALER 18 MCG/DOSE 5 DOSE/MDI IH SCH (08:33)
[2018-04-15] MEDS: FLUTICASONE/SALMETER 250/50MCG DISKUS IH SCH ×2 (08:34→20:41)
[2018-04-15] MEDS: LEVOTHYROXINE 125 MCG TAB PO SCH (10:40)
--- NOTE | 2018-04-15 12:47 | SOAPPROG ---
SOAP Progress Note Assessment/Plan: Assessment: Plan: 04/10/18 14:54 Psychosis: Improving. CCM. 04/14/18 13:41 Psychosis: Continued improvement. Remains disorganized. Will confer with MHP to see if ACT team could assess him this week. 04/15/18 12:47 Psychosis: Appears calmer today. CCM. Subjective: Pt seen, discussed with staff. Appears cheerful and engaging. States he feels "normal", and requests d/c to home. Compliant with meds. SLeeping adequately. Hygiene improving. Objective: Vital Signs Temp Pulse Resp BP Pulse Ox 36.6 C 120 H 20 123/98 H 93 04/15/18 09:39 04/15/18 09:39 04/15/18 09:39 04/15/18 09:39 04/15/18 09:39 MSE: Moderately activated/agitated. Affect is expansive. Mood is "great." TP is linear at times, tangential at others. TC reveals no mention of delusions or hallucinations. - Time Spent With Patient Time Spent With Patient: 15" ICD10 Worksheet Patient Problems: Problems Problem Status Onset Acute psychosis Acute Abscess of neck Active Hypothyroidism Active
--- NOTE | 2018-04-15 14:08 | ASMTCMCOM ---
CM Note CM Note Notes: Pt. reports feeling "good". Pt. stated he slept "like a log". Pt. stated he is getting enough food but would really like a cheeseburger. Pt. reports no issues with his current medications. Pt. stated he is attending group and likes relaxation group. Pt. stated he is "ready to go home." Pt. stated he is able to get himself to his follow up appointments, by using [employer]. Pt. denied SI, HI, AVH and paranoia. Pt. presents as alert, friendly, calm, and with good eye contact. Staff report pt. sleeping 7 hours and being medication compliant. Date Signed: 04/15/2018 02:07 PM Electronically Signed By:Urvashi Qiu
--- NOTE | 2018-04-15 14:19 | ASMTBHDC ---
Notes Note: Notes: CC spoke with pt's [facility] ACT therapist, Renee Albert, . . ACT stated pt's provider, Dr. Poon, is currently out sick and will not be available until next week at the earliest. ACT stated pt. was in [place] one month ago. ACT stated that pt. stated he does not want to quit smoking or use a CPAP. ACT stated an empty alcohol bottle was found in pt's home. ACT stated pt. has a "difficult relationship with mom". ACT stated pt's brother visits pt every other week. ACT stated pt. cannot use public transportation, and instead uses [place]. ACT stated she visited with pt today and pt appeared to be responding to internal stimuli. ACT stated pt. "has issues taking his medications over the weekend". ACT stated it would be best is pt could be discharged on Friday at the earliest. ACT stated pt is close to baseline, but not there yet. ACT stated pt has no cell phone, but a land line instead. Date Signed: 04/15/2018 02:19 PM Electronically Signed By:Urvashi Qiu
[2018-04-15] MEDS: LORazepam 0.5 MG TAB PO PRN (20:41)
[2018-04-15] MEDS: cloZAPine 100 MG TAB PO SCH (20:41)
[2018-04-16] MEDS: IPRATROPIUM HFA INHALER IH SCH ×4 (05:35→21:13)
[2018-04-16] MEDS: FLUTICASONE/SALMETER 250/50MCG DISKUS IH SCH ×2 (09:00→21:13)
[2018-04-16] MEDS: TIOTROPIUM INHALER 18 MCG/DOSE 5 DOSE/MDI IH SCH (09:00)
[2018-04-16] MEDS: DOCUSATE SODIUM 100 MG CAP PO SCH ×2 (09:00→21:13)
[2018-04-16] MEDS: LISINOPRIL 5 MG TAB PO SCH (09:00)
[2018-04-16] MEDS: PANTOPRAZOLE SODIUM 40 MG TAB PO SCH (09:00)
[2018-04-16] MEDS: LEVOTHYROXINE 125 MCG TAB PO SCH (09:55)
--- NOTE | 2018-04-16 20:50 | SOAPPROG ---
SOAP Progress Note Assessment/Plan: Assessment: Plan: 04/10/18 14:54 Psychosis: Improving. CCM. 04/14/18 13:41 Psychosis: Continued improvement. Remains disorganized. Will confer with MHP to see if ACT team could assess him this week. 04/15/18 12:47 Psychosis: Appears calmer today. CCM. 04/16/18 20:50 Psychosis: Slow recovery, but improving daily. CCM. Subjective: Pt seen, discussed with staff. Calmer, more coop. Less internal dialogue. No agressive outbursts. I discussed at length the plan for his care and feedback from outpatient team. He is accepting of this. Objective: Vital Signs Temp Pulse Resp BP Pulse Ox 36.3 C 89 17 131/86 H 96 04/16/18 00:30 04/16/18 16:00 04/16/18 16:00 04/16/18 16:00 04/16/18 16:00 MSE: Disheveled, malodorous. Affect is flat. Mood is "OK." TP is disorganized. TC reveals continued paranoid thought, RIS. - Time Spent With Patient Time Spent With Patient: 25" ICD10 Worksheet Patient Problems: Problems Problem Status Onset Acute psychosis Acute Abscess of neck Active Hypothyroidism Active
[2018-04-16] MEDS: cloZAPine 100 MG TAB PO SCH (21:13)
[2018-04-16] MEDS: LORazepam 0.5 MG TAB PO PRN (21:13)
[2018-04-17] MEDS: LORazepam 0.5 MG TAB PO PRN (03:10)
[2018-04-17] MEDS: IPRATROPIUM HFA INHALER IH SCH ×5 (06:32→19:37)
[2018-04-17] MEDS: TIOTROPIUM INHALER 18 MCG/DOSE 5 DOSE/MDI IH SCH (08:40)
[2018-04-17] MEDS: PANTOPRAZOLE SODIUM 40 MG TAB PO SCH (08:40)
[2018-04-17] MEDS: FLUTICASONE/SALMETER 250/50MCG DISKUS IH SCH ×2 (08:40→19:38)
[2018-04-17] MEDS: DOCUSATE SODIUM 100 MG CAP PO SCH ×2 (08:40→19:37)
[2018-04-17] MEDS: LISINOPRIL 5 MG TAB PO SCH (08:41)
[2018-04-17] MEDS: LEVOTHYROXINE 125 MCG TAB PO SCH (08:44)
--- NOTE | 2018-04-17 15:17 | ASMTCMCOM ---
CM Note CM Note Notes: Attempted to check in with patient. Refused / somnolent. Date Signed: 04/17/2018 03:11 PM Electronically Signed By:Ida Welsh
--- NOTE | 2018-04-17 16:09 | SOAPPROG ---
SOAP Progress Note Assessment/Plan: Assessment: Plan: 04/10/18 14:54 Psychosis: Improving. CCM. 04/14/18 13:41 Psychosis: Continued improvement. Remains disorganized. Will confer with MHP to see if ACT team could assess him this week. 04/15/18 12:47 Psychosis: Appears calmer today. CCM. 04/16/18 20:50 Psychosis: Slow recovery, but improving daily. CCM. 04/17/18 16:09 Psychosis: Continued progressive improvement. [facility]. Subjective: Pt seen, discussed with staff. Remains moderately agitated, pacing. Less impulsive. Requests independent grounds privileges. Generally compliant with meds and staff directions. Offers no c/o's. Objective: Vital Signs Temp Pulse Resp BP Pulse Ox 36.9 C 123 H 16 144/99 H 92 04/17/18 00:30 04/17/18 08:44 04/17/18 08:44 04/17/18 08:44 04/17/18 08:44 MSE: Moderately agitated, coop. Affect is constricted. Mood is "good." TP tangential. TC reveals continued bizarre and paranoid thoughts. - Time Spent With Patient Time Spent With Patient: 15" ICD10 Worksheet Patient Problems: Problems Problem Status Onset Acute psychosis Acute Abscess of neck Active Hypothyroidism Active
[2018-04-17] MEDS: cloZAPine 100 MG TAB PO SCH (19:37)
[2018-04-18] MEDS: IPRATROPIUM HFA INHALER IH SCH ×4 (06:17→21:43)
[2018-04-18] MEDS: DOCUSATE SODIUM 100 MG CAP PO SCH ×2 (09:03→21:42)
[2018-04-18] MEDS: LISINOPRIL 5 MG TAB PO SCH (09:04)
[2018-04-18] MEDS: PANTOPRAZOLE SODIUM 40 MG TAB PO SCH (09:10)
[2018-04-18] MEDS: TIOTROPIUM INHALER 18 MCG/DOSE 5 DOSE/MDI IH SCH (09:11)
[2018-04-18] MEDS: FLUTICASONE/SALMETER 250/50MCG DISKUS IH SCH ×2 (09:11→21:43)
[2018-04-18] MEDS: LEVOTHYROXINE 125 MCG TAB PO SCH (10:01)
--- NOTE | 2018-04-18 16:33 | SOAPPROG ---
SOAP Progress Note Assessment/Plan: Assessment: Most recent note from Dr. Trent: 04/14/18 13:41 Psychosis: Continued improvement. Remains disorganized. Will confer with MHP to see if ACT team could assess him this week. 04/15/18 12:47 Psychosis: Appears calmer today. CCM. 04/16/18 20:50 Psychosis: Slow recovery, but improving daily. CCM. 04/17/18 16:09 Psychosis: Continued progressive improvement. CCM. Subjective: Pt seen, discussed with staff. Remains moderately agitated, pacing. Less impulsive. Requests independent grounds privileges. Generally compliant with meds and staff directions. Offers no c/o's. PLAN: 04/18/18 16:30 1. Slow improvement, still impulsive and disorganized, but able to follow routine. 2. Patient slept 10.5 hrs. Staff report noticeable loud snoring related to LUL. Patient refuses to use CPAP. 3. CCM Subjective: Patient is animated and talkative this AM. He denies any physical complaints. He is able to follow unit routine without being disruptive to milieu. He attends groups, but has difficulty following discussion and has minimal input. Objective: Vital Signs Temp Pulse Resp BP Pulse Ox 36.3 C 120 H 22 H 143/90 H 92 04/18/18 08:00 04/18/18 08:00 04/18/18 08:00 04/18/18 09:04 04/18/18 08:00 MSE: Affect: Elevated, labile Mood: "Good" TP: Disorganized, loose, illogical TC: Denies any SI/HI, no overt paranoia Insight/Judgment: Improving - Time Spent With Patient Time Spent With Patient: 15" - Pending Discharge Pending Discharge Within 24 Hours: No Pending Discharge Within 48 Hours: Yes Pending Discharge Date: 04/20/18 (Likely to d/c on Friday once f/u in place) Pending Discharge Time: 11:00 ICD10 Worksheet Patient Problems: Problems Problem Status Onset Acute psychosis Acute Abscess of neck Active Hypothyroidism Active
[2018-04-18] MEDS: cloZAPine 100 MG TAB PO SCH (21:42)
[2018-04-18] MEDS: LORazepam 0.5 MG TAB PO PRN (22:16)
[2018-04-19] MEDS: IPRATROPIUM HFA INHALER IH SCH ×4 (05:50→19:32)
[2018-04-19] MEDS: PANTOPRAZOLE SODIUM 40 MG TAB PO SCH (09:00)
[2018-04-19] MEDS: DOCUSATE SODIUM 100 MG CAP PO SCH ×2 (09:00→19:32)
[2018-04-19] MEDS: LISINOPRIL 5 MG TAB PO SCH (09:01)
[2018-04-19] MEDS: FLUTICASONE/SALMETER 250/50MCG DISKUS IH SCH ×2 (09:01→19:34)
[2018-04-19] MEDS: TIOTROPIUM INHALER 18 MCG/DOSE 5 DOSE/MDI IH SCH (09:04)
[2018-04-19] MEDS: LEVOTHYROXINE 125 MCG TAB PO SCH (10:39)
--- NOTE | 2018-04-19 14:18 | HOSPPROG ---
Hospitalist Progress Note Assessment/Plan: Asked to evaluate patient for crusting/eye discharge. Patient states this has been present "for years" # acute bacterial conjunctivitis: does appear more c/w acute bacterial conjunctivitis, will start bacitracin opthalmic solution and monitor--no conerns for more significant process but if not improving may need to consider further w/u including optho consult Subjective: patient states he is fine, his eyes have been crusting for years Objective: Vital Signs Temp Pulse Resp BP Pulse Ox 36.9 C 123 H 24 H 132/87 H 92 04/19/18 08:00 04/19/18 08:00 04/19/18 08:00 04/19/18 08:00 04/19/18 00:30 obese man snoring while awake eyes noted to have bilateral erythema/yellow discharge ICD10 Worksheet Patient Problems: Problems Problem Status Onset Hypothyroidism Active Abscess of neck Active Acute psychosis Acute
--- NOTE | 2018-04-19 14:20 | ASMTBHDC ---
Notes Note: Notes: Pt. was eating breakfast when CC approached. Pt. reports feeling "good". Pt. stated he is eating well and attending groups. Pt. reports liking "music therapy" group. Pt. reports no issues with his medications, adding "they're good". Pt. denied SI, HI, AVH and paranoia. Pt. stated he believes he is discharging tomorrow and will take a [employer] cab home. Pt. presents as alert, calm, friendly, unkempt, malodorous and with fair eye contact. Staff report pt. sleeping 2 hours and being medication compliant. Date Signed: 04/19/2018 02:20 PM Electronically Signed By:Urvashi Qiu
--- NOTE | 2018-04-19 16:39 | SOAPPROG ---
SOAP Progress Note Assessment/Plan: Assessment: Most recent note from Dr. Trent: 04/14/18 13:41 Psychosis: Continued improvement. Remains disorganized. Will confer with MHP to see if ACT team could assess him this week. 04/15/18 12:47 Psychosis: Appears calmer today. CCM. 04/16/18 20:50 Psychosis: Slow recovery, but improving daily. CCM. 04/17/18 16:09 Psychosis: Continued progressive improvement. CCM. Subjective: Pt seen, discussed with staff. Remains moderately agitated, pacing. Less impulsive. Requests independent grounds privileges. Generally compliant with meds and staff directions. Offers no c/o's. PLAN: 04/18/18 16:30 1. Slow improvement, still impulsive and disorganized, but able to follow routine. 2. Patient slept 10.5 hrs. Staff report noticeable loud snoring related to LUL. Patient refuses to use CPAP. 3. CCM PLAN: 04/19/18 16:34 1. Treated for bacterial conjunctivitis by hospitalist. 2. Attending to ADLs, washed his shirt. 3. Possible d/c tomorrow. Subjective: Patient was noted to have conjunctivitis with discharge. He was seen by hospitalist who started him on bacitracin. Patient was encouraged to wash hands frequently throughout the day to avoid spreading infection. He was also told not to share objects with peers. He agreed. Objective: Vital Signs Temp Pulse Resp BP Pulse Ox 36.9 C 123 H 24 H 132/87 H 92 04/19/18 08:00 04/19/18 08:00 04/19/18 08:00 04/19/18 08:00 04/19/18 00:30 MSE: Affect: Elevated Mood: "Good" TP: Disorganized, illogical TC: Denies any SI/HI Insight/Judgment: Impaired - Time Spent With Patient Time Spent With Patient: 15" - Pending Discharge Pending Discharge Within 24 Hours: Yes Pending Discharge Within 48 Hours: No Pending Discharge Date: 04/20/18 (Possible d/c on Friday) Pending Discharge Time: 11:00 ICD10 Worksheet Patient Problems: Problems Problem Status Onset Acute psychosis Acute Abscess of neck Active Hypothyroidism Active
[2018-04-19] MEDS: BACITRACIN OPHTHALMIC OINTMENT EACHEYE SCH ×2 (17:20→19:32)
[2018-04-19] MEDS: cloZAPine 100 MG TAB PO SCH (19:31)
[2018-04-19] MEDS: LORazepam 0.5 MG TAB PO PRN (22:24)
[2018-04-20] MEDS: IPRATROPIUM HFA INHALER IH SCH ×4 (07:00→20:57)
[2018-04-20] MEDS: LISINOPRIL 5 MG TAB PO SCH (08:36)
[2018-04-20] MEDS: LEVOTHYROXINE 125 MCG TAB PO SCH (08:36)
[2018-04-20] MEDS: PANTOPRAZOLE SODIUM 40 MG TAB PO SCH (08:36)
[2018-04-20] MEDS: DOCUSATE SODIUM 100 MG CAP PO SCH ×2 (08:36→20:56)
[2018-04-20] MEDS: TIOTROPIUM INHALER 18 MCG/DOSE 5 DOSE/MDI IH SCH (08:41)
[2018-04-20] MEDS: FLUTICASONE/SALMETER 250/50MCG DISKUS IH SCH ×2 (08:42→20:57)
[2018-04-20] MEDS: BACITRACIN OPHTHALMIC OINTMENT EACHEYE SCH ×3 (11:36→20:56)
--- NOTE | 2018-04-20 15:44 | SOAPPROG ---
SOAP Progress Note Assessment/Plan: Assessment: Plan: 04/10/18 14:54 Psychosis: Improving. CCM. 04/14/18 13:41 Psychosis: Continued improvement. Remains disorganized. Will confer with MHP to see if ACT team could assess him this week. 04/15/18 12:47 Psychosis: Appears calmer today. [facility]. 04/16/18 20:50 Psychosis: Slow recovery, but improving daily. [facility]. 04/17/18 16:09 Psychosis: Continued progressive improvement. [facility]. 04/20/18 15:46 Psychosis: Doing better. MHP's requests d/c on 04/22/18 directly to outpt appointments. Subjective: Pt seen, discussed with staff. Upbeat and engaging. States he is "ready to go home." Has an expectation of d/c today. I told him he can only d/c when the ACT Team is ready for him. He remains compliant with treatments. Impulsive at times, though no recent aggression. Objective: Vital Signs Temp Pulse Resp BP Pulse Ox 36.6 C 108 H 16 148/88 H 90 L 04/20/18 08:00 04/20/18 08:00 04/20/18 08:00 04/20/18 08:00 04/20/18 08:00 MSE: Moderately activated, coop. Affect is expansive. Mood is "good." TP circumstantial. TC reveals no mention of psychotic processes. - Time Spent With Patient Time Spent With Patient: 15" ICD10 Worksheet Patient Problems: Problems Problem Status Onset Acute psychosis Acute Alcohol use disorder, severe, in controlled environment Acute Bipolar I disorder, severe, current or most recent episode manic, with anxious distress Acute Cannabis use disorder, severe, in controlled environment Acute Abscess of neck Active Hypothyroidism Active
[2018-04-20] MEDS: LORazepam 0.5 MG TAB PO PRN (20:57)
[2018-04-20] MEDS: cloZAPine 100 MG TAB PO SCH (21:00)
[2018-04-21] MEDS: IPRATROPIUM HFA INHALER IH SCH ×4 (06:37→20:06)
[2018-04-21] MEDS: FLUTICASONE/SALMETER 250/50MCG DISKUS IH SCH ×2 (09:00→20:06)
[2018-04-21] MEDS: BACITRACIN OPHTHALMIC OINTMENT EACHEYE SCH ×3 (09:03→20:06)
[2018-04-21] MEDS: PANTOPRAZOLE SODIUM 40 MG TAB PO SCH (09:04)
[2018-04-21] MEDS: DOCUSATE SODIUM 100 MG CAP PO SCH ×2 (09:04→20:06)
[2018-04-21] MEDS: TIOTROPIUM INHALER 18 MCG/DOSE 5 DOSE/MDI IH SCH (09:04)
[2018-04-21] MEDS: LISINOPRIL 5 MG TAB PO SCH (09:04)
[2018-04-21] MEDS: LEVOTHYROXINE 125 MCG TAB PO SCH (09:04)
--- NOTE | 2018-04-21 17:30 | SOAPPROG ---
SOAP Progress Note Assessment/Plan: Assessment: Plan: 04/10/18 14:54 Psychosis: Improving. CCM. 04/14/18 13:41 Psychosis: Continued improvement. Remains disorganized. Will confer with MHP to see if ACT team could assess him this week. 04/15/18 12:47 Psychosis: Appears calmer today. CCM. 04/16/18 20:50 Psychosis: Slow recovery, but improving daily. CCM. 04/17/18 16:09 Psychosis: Continued progressive improvement. [facility]. 04/20/18 15:46 Psychosis: Doing better. MHP's requests d/c on 04/22/18 directly to outpt appointments. 04/21/18 17:29 Psychosis: Continued improvement. [facility]. Subjective: Pt seen, discussed with staff. No change in clinical status. Case reviewed with Dr. Poon. All in agreement for d/c tomorrow. Objective: Vital Signs Temp Pulse Resp BP Pulse Ox 36.8 C 122 H 20 127/91 H 94 04/21/18 14:09 04/21/18 14:04/21/18 14:04/21/18 14:09 04/21/18 14:09 MSE: Disheveled, loud, sonorous breathing continues, engaging and friendly. Affect is constricted, stable. Mood is "good." TP linear for short responses to questions. TC reveals no mention of delusions or hallucinations. - Time Spent With Patient Time Spent With Patient: 15" ICD10 Worksheet Patient Problems: Problems Problem Status Onset Acute psychosis Acute Alcohol use disorder, severe, in controlled environment Acute Bipolar I disorder, severe, current or most recent episode manic, with anxious distress Acute Cannabis use disorder, severe, in controlled environment Acute Abscess of neck Active Hypothyroidism Active
[2018-04-21] MEDS: cloZAPine 100 MG TAB PO SCH (20:07)
[2018-04-22] MEDS: IPRATROPIUM HFA INHALER IH SCH ×2 (06:17→11:31)
[2018-04-22 06:29] VITALS: BP 130/70
[2018-04-22] MEDS ORDERED: BISACODYL 10 MG SUPP PR ONE (07:28)
[2018-04-22] MEDS: MAGNESIUM HYDROXIDE 30 ML UDCUP PO PRN (07:32)
[2018-04-22 08:05] LABS: PLATELET COUNT 258 10^3/uL (150-400)
[2018-04-22] MEDS: LEVOTHYROXINE 125 MCG TAB PO SCH (08:41)
[2018-04-22] MEDS: DOCUSATE SODIUM 100 MG CAP PO SCH (08:41)
[2018-04-22] MEDS: BACITRACIN OPHTHALMIC OINTMENT EACHEYE SCH (08:41)
[2018-04-22] MEDS: LISINOPRIL 5 MG TAB PO SCH (08:41)
[2018-04-22] MEDS: PANTOPRAZOLE SODIUM 40 MG TAB PO SCH (08:41)
[2018-04-22] MEDS: TIOTROPIUM INHALER 18 MCG/DOSE 5 DOSE/MDI IH SCH (08:42)
[2018-04-22] MEDS: FLUTICASONE/SALMETER 250/50MCG DISKUS IH SCH (08:42)
== END 2018-04-22 13:18 | disposition home or self-care (01) | DRG 885 ==
LOC: EDUNIT# → BBEH 09:55
PROVIDERS: ADMIT Psychiatry & Neurology Psychiatry; ATTEND Psychiatry & Neurology Psychiatry
DX: F31.2 Bipolar disorder, current episode manic severe with psychotic features (principal); H10.30 Unspecified acute conjunctivitis, unspecified eye; E78.5 Hyperlipidemia, unspecified; K21.9 Gastro-esophageal reflux disease without esophagitis; J44.9 Chronic obstructive pulmonary disease, unspecified; E66.01 Morbid (severe) obesity due to excess calories; Z68.37 Body mass index [BMI] 37.0-37.9, adult; E07.9 Disorder of thyroid, unspecified; R00.0 Tachycardia, unspecified; F17.210 Nicotine dependence, cigarettes, uncomplicated; I10 Essential (primary) hypertension; Z87.01 Personal history of pneumonia (recurrent)
CPT/HCPCS: 80305; 84480-90; 84481-90; G0480

== ENCOUNTER 2018-12-11 17:01 | Inpatient (IN) | payer OTHER ==
[2018-12-11] MEDS ORDERED: OLANZapine DISINTEGR 10 MG TAB PO PRN (20:37)
[2018-12-11] MEDS ORDERED: NICOTINE POLACRILEX 2 MG GUM B PRN (20:37)
[2018-12-11] MEDS ORDERED: MAGNESIUM HYDROXIDE 30 ML UDCUP PO PRN (20:37)
[2018-12-11] MEDS: cloZAPine 100 MG TAB PO SCH (21:55)
[2018-12-11] MEDS: metFORMIN HCL 500 MG TAB PO SCH (21:57)
[2018-12-11] MEDS ORDERED: metFORMIN HCL 500 MG TAB ONE (21:57)
--- NOTE | 2018-12-11 23:24 | ASMTLCPROG ---
Notes Note: Notes: Fax attached [facility] eval Date Signed: 12/11/2018 11:24 PM Electronically Signed By:Eric Albert
--- NOTE | 2018-12-11 23:25 | ASMTLCPROG ---
Notes Note: Notes: Fax attached court orders Date Signed: 12/11/2018 11:25 PM Electronically Signed By:Eric Albert
[2018-12-11] MEDS: LORazepam 0.5 MG TAB PO PRN (23:58)
[2018-12-12] MEDS: ACETAMINOPHEN 325 MG TAB PO PRN ×3 (05:29→23:47)
[2018-12-12] MEDS ORDERED: LEVOTHYROXINE 150 MCG TAB PO SCH (06:00)
[2018-12-12] MEDS: CARVEDILOL 6.25 MG TAB PO SCH ×2 (08:06→18:04)
[2018-12-12] MEDS: metFORMIN HCL 500 MG TAB PO SCH ×2 (08:07→18:05)
[2018-12-12] MEDS: PANTOPRAZOLE SODIUM 40 MG TAB PO SCH (08:07)
[2018-12-12] MEDS: INSULIN GLARGINE 100 UNITS/ML UNIT SC SCH (08:07)
[2018-12-12] MEDS: MAG HYDROX/AL HYDROX/SIMETH 30 ML UDCUP PO PRN ×3 (09:04→23:47)
--- NOTE | 2018-12-12 13:55 | ASMTBHMTP ---
Master Treatment Plan Master Treatment Plan Answers: Mood Instability with for: Psychosis Date: 12/12/2018 Diagnosis on Admission: Schizoaffective Disorder Expected length of stay: 3-5 Reason for admission: Notes: The patient stated, "They wanted me to be re-evaluated for the way the phone was working. I'm feeling an eight or nine out of ten (one being worse; ten being great). I must have mouthed off to a social sciences lecturer. I'm glad I came in because I have a bad hamstring and a broken lower back. I've not been sleeping well the last few days;" the patient described fitful sleep. "I just want to go home. Don't fuck me over!" Patient's stated presenting problems: Notes: The patient lacked insight into his symptoms and presentation. He reported feeling stable at home. "I feel great." Patient's goals for treatment: Notes: The patient stated, "To be released by my discharge date." Patient's strengths: Notes: The patient stated, "Humor, sportsmanship, and patience." Identify supports outside of hospital: Notes: The patient is supported per his report by SSI, SSDI, Section 8, family members, and P. He paused his statement, placed his fingers on either taoist and closed his eyes. He stated to himself, "I'll get back to you" and then returned to the conversation with this show card writer. Discharge criteria: Notes: The patient will demonstrate more stable mood by discharge. Initial disposition plan/considerations: Notes: The patient reported a plan to return to his home. His speech suddenly became mumbled, garbled, and incoherent. The patient ended the encounter by discussing his wallet, glasses, and relationship to his mother; unprompted. Master Treatment Plan Required Signatures Psychiatrist signature: Answers: Psychiatrist: RN on-shift signature: Answers: RN: Patient signature: Answers: Patient: Date Signed: 12/12/2018 01:54 PM Electronically Signed By:Noreen Mcgarry
[2018-12-12 14:48] LABS: PLATELET COUNT 255 10^3/uL (150-400)
--- NOTE | 2018-12-12 16:18 | PDCONSULT ---
Orthopedic Podiatrist Note: Chief complaint/HPI The patient is a 43-year-old male with past medical history of sleep apnea, schizoaffective disorder, likely COPD, obesity, GERD, hypertension, admitted to [facility] with acute psychosis. Patient acutely psychotic and unwilling to tell me why he is being admitted. He was evaluated by the mental health team and admitted for further psychiatric care. Internal Medicine has been consulted for medical management. Past medical history Noted as above including schizoaffective disorder, sleep apnea, COPD, obesity, GERD, hypertension Past surgical history He endorses an appendectomy as a child. Social history Drinks occasional alcohol smokes tobacco but denies any drug use Family history noncontributory Medication Patient refused to discuss medications with me with through chart review it appears he takes; Cogent, Clozaril, Haldol, Depakote, budesonide inhaler, fluticasone, MiraLax, senna, omeprazole, levothyroxine, ipratropium, Lasix Allergies Chart review shows penicillin allergy along with cephalosporins and Haldol. Review of systems Ten point review systems negative except as per HPI Vital signs Blood pressure 136/93, heart rate 112, respirations 14, saturating 95% on room air, temperature 36.8 degrees C General unkempt male overweight in no acute distress HEENT PERRLA mucous membranes are moist pink and acyanotic head is atraumatic normocephalic poor oral hygiene Lungs were clear to auscultation bilaterally Cardiovascular regular rhythm tachycardia no murmurs rubs or gallops Abdomen is soft nontender nondistended in all 4 quadrants no organomegaly no guarding or rebound with positive bowel sounds Extremities with no clubbing cyanosis edema or calf pain Skin with no lesions rashes or ecchymosis Neuro cranial nerves 2-12 are grossly intact with no focal neurologic deficits with no costovertebral angle tenderness Lymph no lymphadenopathy Assessment plan 43-year-old male with schizoaffective disorder admitted to [facility] for acute psychotic episode Acute psychosis-pending further evaluation and management per Psychiatry in the mental health team a [facility]. Hypertension- resume home medications including Coreg 6.25 mg twice daily Diabetes- resume home metformin 500 mg p.o. BT Hypothyroid-continue levothyroxine GERD- continue omeprazole LUL- patient previously refused hospital CPAP machine however is now willing to try. I have ordered a CPAP machine for him to use here. Tachycardia- has a history of this which may be related to acute psychoses. If it persists further evaluation per could be Carried out in the meantime continue Coreg 6.25 mg twice daily Thank you for including us in the care this patient. Do not hesitate to contact the hospitalist service for need for further evaluation.
[2018-12-12] MEDS: SENNOSIDES 1 TAB PO SCH (18:05)
--- NOTE | 2018-12-12 19:00 | SOAPPROG ---
SOAP Progress Note Assessment/Plan: Assessment: 43yo CM with long hx of schizoaffective d/o bipolar type and chronic medical problems on ELTC and COM. admitted w/exac of illness in context of recent intermittent med compliance, possible brief relapse EtOH, and recent acute on chronic resp failure requiring brief admit medically to [facility] for stabilization prior to txf to [facility] for psych. 12/12/18 18:59 Pt seen and interviewed, records reviewed. Will restart home meds. CBC w/diff per clozapine protocol Admission dictation to follow. Objective: Vital Signs Temp Pulse Resp BP Pulse Ox 36.8 C 108 H 16 163/107 H 91 L 12/11/18 18:05 12/12/18 18:04 12/12/18 06:00 12/12/18 18:04 12/12/18 06:00 Laboratory Results 12/12/18 14:26 ICD10 Worksheet Patient Problems: Problems Problem Status Onset Abscess of neck Active Hypothyroidism Active Acute psychosis Acute Alcohol use disorder, severe, in controlled environment Acute Bipolar I disorder, severe, current or most recent episode manic, with anxious distress Acute Cannabis use disorder, severe, in controlled environment Acute
[2018-12-12] MEDS: cloZAPine 100 MG TAB PO SCH (21:11)
[2018-12-12] MEDS: LORazepam 0.5 MG TAB PO PRN (23:47)
[2018-12-13] MEDS: ACETAMINOPHEN 325 MG TAB PO PRN (07:29)
[2018-12-13] MEDS: PANTOPRAZOLE SODIUM 40 MG TAB PO SCH ×2 (09:22→09:23)
[2018-12-13] MEDS: LEVOTHYROXINE 150 MCG TAB PO SCH (09:22)
[2018-12-13] MEDS: metFORMIN HCL 500 MG TAB PO SCH ×2 (09:22→17:58)
[2018-12-13] MEDS: CARVEDILOL 6.25 MG TAB PO SCH ×2 (09:24→18:03)
[2018-12-13] MEDS: INSULIN GLARGINE 100 UNITS/ML UNIT SC SCH (09:35)
[2018-12-13] MEDS ORDERED: D50W 25 GM/50 ML SYR IVP PRN (11:03)
[2018-12-13] MEDS: INSULIN LISPRO 100 UNIT/ML SC SCH ×2 (11:21→18:05)
[2018-12-13] MEDS ORDERED: INSULIN LISPRO 100 UNIT/ML SC ONE (12:30)
--- NOTE | 2018-12-13 14:05 | SOAPPROG ---
SOAP Progress Note Assessment/Plan: Assessment; 43yo CM with long hx SZA d/o and recent acute on chronic resp failure txf from [facility] after brief medical admission and stabilization. Incr disorganization and hypomania with inconsistent med compliance prior to admission. Restarted on home meds including Clozaril 350mg hs. 12/13/18 18:01 slept 2hr last night. refused to wear CPAP last night. t/w hospitalist today and agreed to try again. taking meds orally reports no new complaints. pleasant on interaction. engaging with peers. loud volume speech at times noted talking to self. morbidly obese. full range affect. mood "good". linear responses to brief questions but easily derails and expresses delusional content. denied ah/vh. denied any si/hi. i/j impaired PLAN: -cont home meds. -collateral from and coordinate f/u with MHP -monitor respiratory status, encourage CPAP. had recent acute on chronic resp failure recently -will decr Ativan to 0.5mg prn from 1mg. was given 1mg last night. use sparingly and try to avoid to decr risk respiratory depression. also decr zyprexa to just 5mg prn doses. -consider check clozapine level if indicated. may restabilize just with consistent compliance. -attempt to get DM under better control in controlled hospital setting. -on ELTC. Objective: Vital Signs Temp Pulse Resp BP Pulse Ox 36.6 C 113 H 16 161/104 H 91 L 12/12/18 18:20 12/13/18 06:00 12/12/18 18:20 12/13/18 06:00 12/13/18 06:00 Laboratory Results 12/12/18 14:26 - Time Spent With Patient Time Spent With Patient: 15min - Pending Discharge Pending Discharge Within 24 Hours: No ICD10 Worksheet Patient Problems: Problems Problem Status Onset Abscess of neck Active Hypothyroidism Active Acute psychosis Acute Alcohol use disorder, severe, in controlled environment Acute Bipolar I disorder, severe, current or most recent episode manic, with anxious distress Acute Cannabis use disorder, severe, in controlled environment Acute
--- NOTE | 2018-12-13 15:10 | BAPA ---
[f rep st] ADMISSION PSYCHIATRIC ASSESSMENT DATE OF SERVICE: 12/12/2018 REASON FOR ADMISSION: The patient is a 43-year-old male admitted initially , with acute on chronic respiratory failure with hypercarbia and hypoxemia secondary to obstructive sleep apnea/obesity hypoventilation syndrome , COPD, and sedation related to medications. He was admitted to the intensive care unit, and after medical stabilization, he was transferred to [facility] for psychiatric stabilization of his schizoaffective disorder. On admission to [facility], urine drug screen was negative. Chest x-ray noted moderately enlarged cardiac silhouette and mild bibasilar atelectasis. TSH 11.18. He was evaluated by [facility] and, as noted, referred to [facility] for inpatient psychiatric admission. On evaluation, the patient was unable to state exactly why he was hospitalized psychiatrically except for "I was switched from the ER in [place] to here." He then stated "I quit, buds, booze, rocks, and acid for year and a half, restarted alcohol, they caught me." He also states he smokes cigarettes regularly and did allude to a brief relapse in substance use, but urine drug screen as noted was negative. He is a client of [facility] and is on an extended long-term certification, which was transferred to the [facility]. The patient denied any current disorder symptoms, stating his mood was "positive" and regarding any hallucinations, he states "I'm practicing my public speaking course." He was noted on the unit to occasionally be responding to internal stimuli and is with inconsistent thought processes and disorganized thoughts. He reports he lost his glasses so he cannot see for way. States his "real problems right now are that I broke my back, my hamstrings are killing me, and I need to get up and walk more." He does not appear, however, in any physical distress with ambulation or in any pain. Per [facility] evaluation while patient was at [facility] following medical stabilization, the patient was reported to have been decompensating with hypomanic symptoms, disorganized thought pattern, and tangential thoughts, having difficulty engaging in logical and linear conversation and with labile mood at times. Prior to arriving to the ED 2 days earlier, the patient was putting out cigarettes on vogt of his apartment, yelling outside his apartment, alarming neighbor's, and sat outside all day sustaining a 1st degree sunburn. He seemed to have no insight into symptoms, has not been controlling his diabetes, and there was a strong concern for medication compliance with patient admitting to having "missed" 1 day of medication but possibly more. PAST PSYCHIATRIC HISTORY: The patient has a long history of severe mental illness with numerous, approximately 20, admissions to [facility] and several admissions to the [facility]. Most recently admitted 04/09/2018, for several weeks. He does have a history of 3 prior suicide attempts; last admission in [facility] in January 2014 for suicidal ideation. He has had numerous previous medication trials with trials on several different antipsychotics and mood stabilizers. He had been on lithium for a long time until renal failure approximately 6 weeks prior to March admission in 2017, at which time it was stopped. This history is obtained from previous records in the EDM. The patient has been diagnosed with schizoaffective disorder. He is on extended long-term certification, and reportedly also court-ordered medications, through [facility]. ALLERGIES: Penicillin, cephalosporins, and haloperidol. PAST MEDICAL HISTORY: Significant for hypertension, morbid obesity, COPD, obstructive sleep apnea/obesity hypoventilation syndrome, the patient refuses to wear BiPAP. Also hypothyroidism and GERD. Recent admission to [facility] with acute on chronic respiratory failure with hypercarbia and hypoxemia as noted. IDDM. CURRENT MEDICATIONS: Carvedilol (Coreg) 6.25 mg p.o. b.i.d. with meals. Clozaril 350 mg p.o. q.h.s. Insulin glargine (Lantus) 10 units sq daily. Synthroid 150 mcg p.o. daily. Metformin 500 mg p.o. b.i.d. FAMILY PSYCHIATRIC HISTORY: Per EDM, the patient's brother and father are reported to have some type of mental illness, by exact nature unknown. SOCIAL HISTORY: The patient is single, lives alone in supportive housing in [place]. Attends treatment at [facility] through the ACT team in order to monitor his medications and psychiatric stability. Outpatient psychiatrist, Dr. Poon. The patient grew up in [place], graduated from [employer] [place] [employer]. Receives Social Security disability income. Does reportedly have family support. SUBSTANCE USE HISTORY: The patient has a long history of alcohol use, but reports a long period of sobriety, although endorsed recent relapse. He was inconsistent in amount and nature of relapse, amount used, and whether medication compliant during this time. He smokes cigarettes up to 3 packs per day. He has used numerous other substances in the past as he reports, but has been clean for over 1-1/2 years, as he states. MENTAL STATUS EXAM: Morbidly obese male with good eye contact, normal speech rate, loud volume at times. Friendly and engaging. Speech is articulate. Affect is full, generally appears euthymic and reports mood has "positive." Thought processes are goal directed for brief periods, but then become rambling, and disorganized with inconsistent responses to questions. He denied any auditory or visual hallucination, and did not appear to be responding to internal stimuli during interview, however, has been noted responding to internal stimuli and talking to himself on the unit with no one around. He denied any suicidal thoughts or thoughts to harm others. Insight and judgment appear impaired. The patient is oriented to self, month, year, and place. IMPRESSION: A 43-year-old male with a long history of schizoaffective disorder bipolar type, alcohol use disorder in remission, although reports recent use, precipitants to recent decompensation are somewhat unclear, but seem related to recent exacerbation of his medical condition with acute respiratory failure, hypercarbia, and hypoxemia prompting brief hospital stay at [facility], and also some possible inconsistent medication compliance and alcohol use. The patient requires an acute inpatient psychiatric admission for psychiatric stabilization and to ensure continued medication compliance in conjunction with medical stability. DIAGNOSIS: 1. Schizoaffective disorder, bipolar type. Most recent episode hypomanic. 2. Alcohol use disorder, unspecified. 3. Hypothyroidism. 4. Chronic obstructive pulmonary disease. 5. Obstructive sleep apnea/obesity hypoventilation syndrome and noncompliant with BiPAP. 6. Diabetes. 7. Hypertension. 8. Gastroesophageal reflux disease. PLAN OF TREATMENT: Patient admitted to [facility] for stabilization. Restarted on home medications including Clozaril 350 mg daily. We will check CBC with differential. Most recent TSH at outside hospital elevated. We will recheck as indicated and may need adjustment of Synthroid, if it is determined that he has been medication compliant. We will need collateral information from outpatient providers. Transfer of extended long- term certification received from [facility] on admission. Need to confirm court- ordered medication. Encourage attendance and participation in group therapies and milieu activities. Monitor for any psychosis and worsening of symptoms. Routine vital signs, continue monitoring respiratory status as indicated, with hospitalist involvement as indicated. Encourage compliance with BiPAP. Monitor for safety. The patient denied any suicidal or homicidal ideation. Will place on safety precautions, but no suicide precautions for fall precautions indicated at this time. Coordinate followup with outpatient providers prior to discharge with ongoing monitoring of medication for compliance. Nicotine gum/patch p.r.n. given patient tobacco use in community. Consider check clozapine level versus monitoring and titrating to clinical response. /[id number]/MODL MTDD
--- NOTE | 2018-12-13 16:41 | PDMN ---
Medical Necessity Medical necessity: [facility] [id number] Schizophrenia Spectrum Disorders, Adult: Inpatient Care, 6 days: 43 yo w/ schizoaffective d/o, bipolar type, most recent episode hypomanic. Pt recently admitted for medical issues of acute resp fx, hypercarbia and hypoxemia w/ possible inconsistent medication compliance and etoh use precipitating recent decompensation, transferred to IP BEH unit. Admit IP status to BEH unit for hypomanic sx, disorganized though pattern, tangential thoughts, difficulty engaging in logical and linear conversation and labile mood.
[2018-12-13] MEDS: SENNOSIDES 1 TAB PO SCH (17:59)
--- NOTE | 2018-12-13 18:00 | HOSPPROG ---
Hospitalist Progress Note Assessment/Plan: Assessment/plan 43-year-old male with schizoaffective disorder admitted to [facility] for acute psychotic episode Acute psychosis-pending further evaluation and management per Psychiatry in the mental health team a [facility]. Hypertension- resume home medications including Coreg 6.25 mg twice daily Diabetes-We resumed home metformin 500 mg p.o. BID along iwth lantus 10 but patient with substantial hyperglycemia. -add high dose ssi -check A1c as I suspect he is poorly controlled on current regimen. -likely increase lantus tomorrow depending on lispro usage. Hypothyroid-continue levothyroxine GERD- continue omeprazole LUL- patient previously refused hospital CPAP machine however is now willing to try. I have ordered a CPAP machine for him to use here. Tachycardia- has a history of this which may be related to acute psychoses. If it persists further evaluation per could be Carried out in the meantime continue Coreg 6.25 mg twice daily Thank you for including us in the care this patient. Do not hesitate to contact the hospitalist service for need for further evaluation. Subjective: No complaints. Objective: Vital Signs Temp Pulse Resp BP Pulse Ox 36.6 C 113 H 16 161/104 H 91 L 12/12/18 18:20 12/13/18 06:00 12/12/18 18:20 12/13/18 06:00 12/13/18 06:00 Laboratory Results 12/12/18 14:26 - Physical Exam Constitutional: no apparent distress, appears nourished, not in pain Eyes: PERRL, anicteric sclera, EOMI Ears, Nose, Mouth, Throat: moist mucous membranes, hearing normal, ears appear normal, no oral mucosal ulcers Cardiovascular: regular rate and rhythym, no murmur, rub, or gallop Respiratory: no respiratory distress, no rales or rhonchi, clear to auscultation Gastrointestinal: normoactive bowel sounds, soft, non-tender abdomen, no palpable masses Genitourinary: no bladder fullness, no bladder tenderness, no renal bruits Skin: no rashes or abrasions, no fluctuance, no induration Musculoskeletal: full muscle strength, no muscle tenderness, normal joint ROM Neurologic: AAOx3, sensation intact bilaterally Psychiatric: interacting appropriately, not anxious, not encephalopathic, thought process linear Lymph, Heme, Immunologic: no cervical LAD, no supraclavicular LAD ICD10 Worksheet Patient Problems: Problems Problem Status Onset Abscess of neck Active Hypothyroidism Active Acute psychosis Acute Alcohol use disorder, severe, in controlled environment Acute Bipolar I disorder, severe, current or most recent episode manic, with anxious distress Acute Cannabis use disorder, severe, in controlled environment Acute
[2018-12-13] MEDS ORDERED: OLANZapine DISINTEGR 5 MG TAB PO PRN (18:26)
[2018-12-13] MEDS: cloZAPine 100 MG TAB PO SCH (20:54)
[2018-12-13] MEDS: LORazepam 0.5 MG TAB PO PRN (23:52)
[2018-12-13] MEDS: OLANZapine DISINTEGR 5 MG TAB PO PRN (23:52)
[2018-12-14] MEDS: metFORMIN HCL 500 MG TAB PO SCH ×2 (08:56→17:50)
[2018-12-14] MEDS: INSULIN LISPRO 100 UNIT/ML SC SCH ×3 (08:57→17:49)
[2018-12-14] MEDS: LEVOTHYROXINE 150 MCG TAB PO SCH (08:57)
[2018-12-14] MEDS: PANTOPRAZOLE SODIUM 40 MG TAB PO SCH (08:57)
[2018-12-14] MEDS: CARVEDILOL 6.25 MG TAB PO SCH ×2 (08:57→17:50)
--- NOTE | 2018-12-14 12:15 | HOSPPROG ---
Hospitalist Progress Note Assessment/Plan: Assessment/plan 43-year-old male with schizoaffective disorder admitted to [facility] for acute psychotic episode Acute psychosis-pending further evaluation and management per Psychiatry in the mental health team a [facility]. Hypertension- resume home medications including Coreg 6.25 mg twice daily Diabetes-We resumed home metformin 500 mg p.o. BID along iwth lantus 10 QD but patient with substantial hyperglycemia. -A1c over 10 on home lantus and metformin -Double lantus to 10 BID -continue SSI -carb controlled diet. Hypothyroid-continue levothyroxine GERD- continue omeprazole LUL- patient previously refused hospital CPAP machine however is now willing to try. I have ordered a CPAP machine for him to use here. Tachycardia- has a history of this which may be related to acute psychoses. If it persists further evaluation per could be Carried out in the meantime continue Coreg 6.25 mg twice daily Thank you for including us in the care this patient. Do not hesitate to contact the hospitalist service for need for further evaluation. Subjective: tangential and not answering questions appropriately. Objective: Vital Signs Temp Pulse Resp BP Pulse Ox 36.4 C 114 H 21 H 131/94 H 91 L 12/14/18 06:00 12/14/18 06:00 12/14/18 06:00 12/13/18 18:03 12/14/18 06:00 Laboratory Results 12/12/18 14:26 - Physical Exam Constitutional: no apparent distress, not in pain, obese Eyes: PERRL Ears, Nose, Mouth, Throat: moist mucous membranes Cardiovascular: regular rate and rhythym Respiratory: no respiratory distress Gastrointestinal: normoactive bowel sounds, soft, non-tender abdomen, no palpable masses Genitourinary: no bladder fullness, no bladder tenderness, no renal bruits Skin: no rashes or abrasions, no fluctuance, no induration Musculoskeletal: full muscle strength, no muscle tenderness, normal joint ROM Neurologic: AAOx3, sensation intact bilaterally Psychiatric: anxious Lymph, Heme, Immunologic: no cervical LAD, no supraclavicular LAD ICD10 Worksheet Patient Problems: Problems Problem Status Onset Abscess of neck Active Hypothyroidism Active Acute psychosis Acute Alcohol use disorder, severe, in controlled environment Acute Bipolar I disorder, severe, current or most recent episode manic, with anxious distress Acute Cannabis use disorder, severe, in controlled environment Acute
[2018-12-14] MEDS: INSULIN GLARGINE 100 UNITS/ML UNIT SC SCH ×2 (13:05→20:46)
--- NOTE | 2018-12-14 14:45 | ASMTCMCOM ---
CM Note CM Note Notes: CC met with pt's ACT therapist, Reneemaritza Albert ([phone]). ACT reports pt. not being at baseline. ACT report pt. struggles to speak clearly when in this state. ACT reports pt. has a [facility] schedule for 12/16. ACT reports pt. refused to wear a CPAP, adding the pt. usually smokes two packs of cigarettes per day. ACT reports diabetes being a new medical issue for this pt. ACT report pt. loves to eat. ACT therapist report pt's medications are managed by [facility] ACT. ACT stated they bring the pt's medications to his home on Friday and Friday. ACT stated pt. is cabbed to [facility] on Friday, Friday, and to get his medications. ACT provided ACT Nurse's number - [phone]. CC called requesting pt's [facility] records. Staff report pt. sleeping 3 hours and being medication compliant. Staff report pt. refusing his CPAP and labs this morning. Date Signed: 12/14/2018 02:27 PM Electronically Signed By:Urvashi Qiu
--- NOTE | 2018-12-14 16:55 | SOAPPROG ---
SOAP Progress Note Assessment/Plan: Assessment: 43yo CM with long hx SZA d/o and recent acute on chronic resp failure txf from [facility] after brief medical admission and stabilization. Incr disorganization and hypomania with inconsistent med compliance prior to admission. CURRENT PLAN: 12/14/18 16:[address] Couch re-started home medications including Clozaril 350mg HS. 2. Will order CBC tomorrow 3. [facility] confirmed patient is due for next IM Haldol 200mg on 12/16/18. 4. Hospitalist is following patient for numerous comorbid medical conditions: -HTN - started on Coreg 6.25mg BID -DM - currently on SSI and metformin and lantus -GERD - continued on Prilosec -LUL - patient encouraged to use CPAP, but he has refused -Hypothyroidism - continue on levothyroxine 5. Patient on LTC/COM 6. Will coordinate d/c with Dr. Poon ([phone]) Subjective: Patient is morbidly obese, sitting in day room on high acuity Zone 2 eating lunch and talking to male peer. He says that he would like larger portions of food. Patient now on metformin and insulin to treat diabetes along with LUL, GERD and HTN. These serious medical conditions are likely the result of obesity , which in turn is likely caused by prolonged use of multiple antipsychotic medications. MD is concerned about the potential adverse effects of Haldol and Clozaril. MD will talk to Dr. Poon, patient's outpatient provider at [facility], about the relative risks and benefits of current course of treatment. Objective: Vital Signs Temp Pulse Resp BP Pulse Ox 36.4 C 114 H 21 H 131/94 H 91 L 12/14/18 06:00 12/14/18 06:00 12/14/18 06:00 12/13/18 18:03 12/14/18 06:00 Laboratory Results 12/12/18 14:26 MSE: Affect: Cheerful Mood: "OK" TP: Disorganized, illogical TC: Denies any SI/HI Insight/Judgment: Poor - Time Spent With Patient Time Spent With Patient: 15" - Pending Discharge Pending Discharge Within 24 Hours: No Pending Discharge Within 48 Hours: No ICD10 Worksheet Patient Problems: Problems Problem Status Onset Abscess of neck Active Hypothyroidism Active Acute psychosis Acute Alcohol use disorder, severe, in controlled environment Acute Bipolar I disorder, severe, current or most recent episode manic, with anxious distress Acute Cannabis use disorder, severe, in controlled environment Acute
[2018-12-14] MEDS: SENNOSIDES 1 TAB PO SCH (17:50)
[2018-12-14] MEDS: cloZAPine 100 MG TAB PO SCH (20:47)
[2018-12-15] MEDS: LORazepam 0.5 MG TAB PO PRN (04:51)
[2018-12-15] MEDS: OLANZapine DISINTEGR 5 MG TAB PO PRN (04:52)
[2018-12-15] MEDS: ACETAMINOPHEN 325 MG TAB PO PRN (05:26)
[2018-12-15] MEDS: INSULIN LISPRO 100 UNIT/ML SC SCH ×3 (08:45→17:35)
[2018-12-15] MEDS: CARVEDILOL 6.25 MG TAB PO SCH ×2 (08:49→17:34)
[2018-12-15] MEDS: PANTOPRAZOLE SODIUM 40 MG TAB PO SCH (08:49)
[2018-12-15] MEDS: metFORMIN HCL 500 MG TAB PO SCH ×2 (08:49→17:34)
[2018-12-15] MEDS ORDERED: INSULIN GLARGINE 100 UNITS/ML UNIT SC SCH ×2 (09:00)
[2018-12-15] MEDS: LEVOTHYROXINE 150 MCG TAB PO SCH (10:00)
--- NOTE | 2018-12-15 12:09 | ASMTCMCOM ---
CM Note CM Note Notes: CC speaks to client briefly during check in. Client presents as highly disorganized. Client was unable to explain how he was doing; however, noted, "doing ok." Client was interacting with other peers on the unit; however, remains gravely disabled. Date Signed: 12/15/2018 12:08 PM Electronically Signed By:Roberth Douglas
--- NOTE | 2018-12-15 13:42 | HOSPPROG ---
Hospitalist Progress Note Assessment/Plan: Assessment/plan 43-year-old male with schizoaffective disorder admitted to [facility] for acute psychotic episode Acute psychosis-pending further evaluation and management per Psychiatry in the mental health team a [facility]. Hypertension- resume home medications including Coreg 6.25 mg twice daily Diabetes-We resumed home metformin 500 mg p.o. BID along iwth lantus 10 QD but patient with substantial hyperglycemia. -A1c over 10 on home lantus and metformin -Increased lantus to 15 qd rather than 10 BID. will continue to titrate depending on response. -continue SSI -carb controlled diet. Hypothyroid-continue levothyroxine GERD- continue omeprazole LUL- patient previously refused hospital CPAP machine however is now willing to try. I have ordered a CPAP machine for him to use here. Tachycardia- has a history of this which may be related to acute psychoses. If it persists further evaluation per could be Carried out in the meantime continue Coreg 6.25 mg twice daily Thank you for including us in the care this patient. we will continue to follow along. Subjective: pressured speech. No complaints. obviously fake congolese accent, makes communication difficult. Objective: Vital Signs Temp Pulse Resp BP Pulse Ox 36.7 C 110 H 16 129/82 H 91 L 12/15/18 06:00 12/15/18 06:00 12/15/18 06:00 12/15/18 06:00 12/15/18 06:00 Laboratory Results 12/12/18 14:26 - Physical Exam Constitutional: no apparent distress, appears nourished, not in pain Eyes: PERRL, anicteric sclera, EOMI Ears, Nose, Mouth, Throat: moist mucous membranes, hearing normal, ears appear normal, no oral mucosal ulcers Cardiovascular: regular rate and rhythym, no murmur, rub, or gallop Respiratory: no respiratory distress, no rales or rhonchi, clear to auscultation Gastrointestinal: normoactive bowel sounds, soft, non-tender abdomen, no palpable masses Genitourinary: no bladder fullness, no bladder tenderness, no renal bruits Skin: no rashes or abrasions, no fluctuance, no induration Musculoskeletal: full muscle strength, no muscle tenderness, normal joint ROM Neurologic: AAOx3, sensation intact bilaterally Psychiatric: interacting appropriately, not anxious, not encephalopathic, thought process linear Lymph, Heme, Immunologic: no cervical LAD, no supraclavicular LAD ICD10 Worksheet Patient Problems: Problems Problem Status Onset Abscess of neck Active Hypothyroidism Active Acute psychosis Acute Alcohol use disorder, severe, in controlled environment Acute Bipolar I disorder, severe, current or most recent episode manic, with anxious distress Acute Cannabis use disorder, severe, in controlled environment Acute
--- NOTE | 2018-12-15 15:43 | SOAPPROG ---
SOAP Progress Note Assessment/Plan: Assessment: 43yo CM with long hx SZA d/o and recent acute on chronic resp failure txf from [facility] after brief medical admission and stabilization. Incr disorganization and hypomania with inconsistent med compliance prior to admission. CURRENT PLAN: 12/14/18 16:[address] Couch re-started home medications including Clozaril 350mg HS. 2. Will order CBC tomorrow 3. [facility] confirmed patient is due for next IM Haldol 200mg on 12/16/18. 4. Hospitalist is following patient for numerous comorbid medical conditions: -HTN - started on Coreg 6.25mg BID -DM - currently on SSI and metformin and lantus -GERD - continued on Prilosec -LUL - patient encouraged to use CPAP, but he has refused -Hypothyroidism - continue on levothyroxine 5. Patient on LTC/COM 6. Will coordinate d/c with Dr. Poon ([phone]) 12/15/18 15:40 1. called and left message for Dr. Poon ([phone]) to discuss Haldol decanoate injection. MD believes there is risk of medical problems from continued use of 2 antipsychotic medications. However, patient has long h/o chronic, severe schizophrenia. The possible benefits of current med regimen must be weighed against the potential risks. 2. Patient's last CBC was done on 12/11/18. His ANC was WNL. 3. Hospitalist continues to follow for DM, HTN and other medical issues. His insulin dose was adjusted today. 4. LTC/COM Subjective: Patient is in good spirits today. He is laughing, smiling and interacting with peers. For the most part, patient is appropriate and pleasant. He remains very disorganized and doesn't know why he's in hospital, but is cooperative with treatment. Objective: Vital Signs Temp Pulse Resp BP Pulse Ox 36.7 C 110 H 16 129/82 H 91 L 12/15/18 06:00 12/15/18 06:00 12/15/18 06:00 12/15/18 06:00 12/15/18 06:00 Laboratory Results 12/12/18 14:26 MSE: Affect: Cheerful Mood: "Good" TP: Disorganized, irrational TC: Denies any SI/HI, still delusional Insight/Judgment: Impaired - Time Spent With Patient Time Spent With Patient: 15" - Pending Discharge Pending Discharge Within 24 Hours: No Pending Discharge Within 48 Hours: No ICD10 Worksheet Patient Problems: Problems Problem Status Onset Abscess of neck Active Hypothyroidism Active Acute psychosis Acute Alcohol use disorder, severe, in controlled environment Acute Bipolar I disorder, severe, current or most recent episode manic, with anxious distress Acute Cannabis use disorder, severe, in controlled environment Acute
[2018-12-15] MEDS: SENNOSIDES 1 TAB PO SCH (17:34)
[2018-12-15] MEDS: cloZAPine 100 MG TAB PO SCH (21:00)
[2018-12-16] MEDS: PANTOPRAZOLE SODIUM 40 MG TAB PO SCH (08:51)
[2018-12-16] MEDS: CARVEDILOL 6.25 MG TAB PO SCH ×2 (08:51→17:05)
[2018-12-16] MEDS: INSULIN LISPRO 100 UNIT/ML SC SCH ×2 (08:51→17:45)
[2018-12-16] MEDS: LEVOTHYROXINE 150 MCG TAB PO SCH (08:52)
[2018-12-16] MEDS: metFORMIN HCL 500 MG TAB PO SCH ×2 (08:52→17:05)
--- NOTE | 2018-12-16 09:28 | ASMTCMCOM ---
CM Note CM Note Notes: Client remains the same as previous days. Client presents as disorganized, loud at times. Client does spend time out of his room and with other peers; however, remains gravely disabled. Date Signed: 12/16/2018 09:27 AM Electronically Signed By:Roberth Douglas. .Whitney AlmonteP
--- NOTE | 2018-12-16 10:44 | ASMTCMCOM ---
CM Note CM Note Notes: Received call from [facility] requesting update. CC had client sign and ROSI, called [facility] at no answer left a VM with return contact information. Date Signed: 12/16/2018 10:43 AM Electronically Signed By:Roberth Douglas. .GageRSilkeP
--- NOTE | 2018-12-16 12:32 | ASMTCMCOM ---
CM Note CM Note Notes: Received call from [facility], she notes that her family will be out of town until Friday and request that CC reach out to the family when client starts to get better as his support system will be unavailable until next week (Friday). [facility], will available via phone if staff need to speak with her, etc. Date Signed: 12/16/2018 12:31 PM Electronically Signed By:Roberth Douglas. .Telly.,R.P
--- NOTE | 2018-12-16 15:44 | HOSPPROG ---
Hospitalist Progress Note Assessment/Plan: Assessment/plan 43-year-old male with schizoaffective disorder admitted to [facility] for acute psychotic episode Acute psychosis-pending further evaluation and management per Psychiatry in the mental health team a [facility]. Hypertension- resume home medications including Coreg 6.25 mg twice daily Diabetes-We resumed home metformin 500 mg p.o. BID along iwth lantus 10 QD but patient with substantial hyperglycemia. -A1c over 10 on home lantus and metformin -Increased lantus to 18 qd. will continue to titrate depending on response. -continue SSI -carb controlled diet. Hypothyroid-continue levothyroxine GERD- continue omeprazole LUL- patient previously refused hospital CPAP machine however is now willing to try. I have ordered a CPAP machine for him to use here. Tachycardia- has a history of this which may be related to acute psychoses. If it persists further evaluation per could be Carried out in the meantime continue Coreg 6.25 mg twice daily Thank you for including us in the care this patient. we will continue to follow along. Subjective: no change Objective: Vital Signs Temp Pulse Resp BP Pulse Ox 36.5 C 106 H 18 134/88 H 97 12/16/18 06:00 12/16/18 06:00 12/16/18 06:00 12/16/18 06:00 12/16/18 06:00 Laboratory Results 12/12/18 14:26 - Physical Exam Constitutional: no apparent distress Eyes: PERRL Ears, Nose, Mouth, Throat: moist mucous membranes Cardiovascular: regular rate and rhythym Respiratory: no respiratory distress, no rales or rhonchi, clear to auscultation Gastrointestinal: normoactive bowel sounds, soft, non-tender abdomen, no palpable masses Genitourinary: no bladder fullness, no bladder tenderness, no renal bruits Skin: no rashes or abrasions, no fluctuance, no induration Musculoskeletal: full muscle strength, no muscle tenderness, normal joint ROM Neurologic: AAOx3, sensation intact bilaterally Psychiatric: anxious, poor insight, poor judgement Lymph, Heme, Immunologic: no cervical LAD, no supraclavicular LAD ICD10 Worksheet Patient Problems: Problems Problem Status Onset Abscess of neck Active Hypothyroidism Active Acute psychosis Acute Alcohol use disorder, severe, in controlled environment Acute Bipolar I disorder, severe, current or most recent episode manic, with anxious distress Acute Cannabis use disorder, severe, in controlled environment Acute
[2018-12-16] MEDS: INSULIN GLARGINE 100 UNITS/ML UNIT SC SCH (16:35)
[2018-12-16] MEDS: SENNOSIDES 1 TAB PO SCH (17:05)
--- NOTE | 2018-12-16 17:29 | SOAPPROG ---
SOAP Progress Note Assessment/Plan: Assessment: 43yo CM with long hx SZA d/o and recent acute on chronic resp failure txf from [facility] after brief medical admission and stabilization. Incr disorganization and hypomania with inconsistent med compliance prior to admission. CURRENT PLAN: 12/16/18 17:19 1. Patient continues to present as disorganized, but able to participated in group activities. MD observed patient playing [employer] card game with staff and peer. 2. spoke at length with oupatient provider, Dr. Poon, who explained patient has h/o chronic, severe mental illness, including > 15 admissions to [facility]. She claims that at baseline he remains delusional and disorganized. She says patient never takes medications on his own. That's why [facility] gives patient his daily meds at their clinic M-. 3. Dr. Poon said that despite morbid obesity, poor diet and no exercise, patient has not been dx with DM. She had patient on metformin for prophylaxis. Patient had not taken insulin before this admission. Dr. Poon mentioned patient has not had elevated HgbA1c until this admission. explained his HgbA1c was 10.2 on 12/12 and his FSBS have regularly been > 200. Dr. Poon states patient will not be able to administer insulin. The ACT team at [facility] does not have the resources to monitor patient's diabetes and administer his current dose of insulin. agreed to d/w diabetes monitoring and treatment with hospitalist and provide recommendations for [facility] prior to d/c. 4. Treatment team will need to come up with reasonable plan to address both patient's psychiatric problems as well as his physical health issues. 5. Dr. Poon emphasized that despite the risks and possible adverse effects associated with dual antipsychotic medications, the severity of patient's psych condition and numerous prior psych admissions warranted Clozaril and IM Haldol. MD agreed to give patient his next scheduled dose of Haldol decanoate while he is in hospital. 6. ST[facility] Subjective: Patient presents laughing, smiling and joking with MD and staff. He talks in loud voices, but is pleasant and cooperative. He is less intrusive and more cooperative with direction today. He does not appear to respond to internal/ external stimuli. He denies paranoid delusions, bizarre thoughts and IOR. Objective: Vital Signs Temp Pulse Resp BP Pulse Ox 36.5 C 108 H 18 135/83 H 97 12/16/18 06:00 12/16/18 17:05 12/16/18 06:00 12/16/18 17:05 12/16/18 06:00 Laboratory Results 12/12/18 14:26 MSE: Affect: Cheerful, smiling, laughing Mood: "OK" TP: Disorganized, irrational TC: Denies SI/HI, no paranoid delusions Perception: Denies AH/VH Insight/Judgment: Impaired - Time Spent With Patient Time Spent With Patient: 20" - Pending Discharge Pending Discharge Within 24 Hours: No Pending Discharge Within 48 Hours: No ICD10 Worksheet Patient Problems: Problems Problem Status Onset Abscess of neck Active Hypothyroidism Active Acute psychosis Acute Alcohol use disorder, severe, in controlled environment Acute Bipolar I disorder, severe, current or most recent episode manic, with anxious distress Acute Cannabis use disorder, severe, in controlled environment Acute
[2018-12-16] MEDS ORDERED: HALOPERIDOL DEC (LONG-ACTING) 50 MG/ML VIAL IM ONE (17:31)
[2018-12-16] MEDS: cloZAPine 100 MG TAB PO SCH (20:49)
[2018-12-17] MEDS: ACETAMINOPHEN 325 MG TAB PO PRN (07:04)
[2018-12-17] MEDS: CARVEDILOL 6.25 MG TAB PO SCH ×2 (08:22→17:50)
[2018-12-17] MEDS: LEVOTHYROXINE 150 MCG TAB PO SCH (08:22)
[2018-12-17] MEDS: metFORMIN HCL 500 MG TAB PO SCH ×2 (08:22→17:51)
[2018-12-17] MEDS: PANTOPRAZOLE SODIUM 40 MG TAB PO SCH (08:23)
[2018-12-17] MEDS: INSULIN LISPRO 100 UNIT/ML SC SCH ×4 (08:27→23:43)
[2018-12-17] MEDS ORDERED: HALOPERIDOL DEC (LONG-ACTING) 50 MG/ML VIAL IM ONE (10:00)
--- NOTE | 2018-12-17 11:51 | ASMTCMCOM ---
CM Note CM Note Notes: CC met with Ct for the first time. Ct sitting in the group room staring at the television that was turned off. Ct polite, shook the CC's hand and stated that he was fine and wanting to be dc'd home. At some point he began to ask for something in re to his meals, but his speech became more difficult to understand. his family will be out of town over the weekend. Date Signed: 12/17/2018 11:50 AM Electronically Signed By:Shanae Sarmiento. GEMA
--- NOTE | 2018-12-17 12:07 | ASMTCMCOM ---
CM Note CM Note Notes: CC spoke with Michelle and his mother. Ct will be d/cing today. Ct has declined both Lyft and bus passes and will be walking home. he has an appt at with a therapist that he intends to go to. An ex-gf/friend will be flying up from [place] tomorrow night and driving with Ct back to [place]. At this time he plans to then visit his sister in [place] before returning to this summer or fall. He has a psychiatrist's appt at January 04. If he is unable to make that appt he has been directed to call to reschedule or to begin a relationship and see a different provider prior to his prescription medicine running out. Date Signed: 12/17/2018 12:04 PM Electronically Signed By:Shanae Sarmiento. [facility]
[2018-12-17] MEDS: INSULIN GLARGINE 100 UNITS/ML UNIT SC SCH (13:26)
--- NOTE | 2018-12-17 14:48 | HOSPPROG ---
Hospitalist Progress Note Assessment/Plan: 43-year-old male with schizoaffective disorder admitted to inpatient behavioral health for acute psychotic episode #Diabetes: bg still elevated, including fasting bg - increase glargine 18->22u daily, continue SSI and metformin #HTN: bp controlled - continue coreg #Sinus tachycardia: persistent, very low concern for pe - on beta nehal as above #LUL: cpap ordered #Hypothyroid: continue LT4 replacement, tsh ok #GERD: on PPI #Acute psychosis: management per inpatient psych team Thank you for including us in the care this patient. we will continue to follow along. Subjective: No complaints. Objective: Vital Signs Temp Pulse Resp BP Pulse Ox 36.6 C 118 H 16 137/81 H 90 L 12/17/18 06:00 12/17/18 06:00 12/17/18 06:00 12/17/18 06:00 12/17/18 06:00 Laboratory Results 12/12/18 14:26 - Physical Exam Constitutional: no apparent distress, obese Eyes: PERRL, anicteric sclera, EOMI Ears, Nose, Mouth, Throat: moist mucous membranes, hearing normal, ears appear normal, no oral mucosal ulcers Cardiovascular: regular rate and rhythym, no murmur, rub, or gallop Respiratory: no respiratory distress, no rales or rhonchi, clear to auscultation Gastrointestinal: normoactive bowel sounds, soft, non-tender abdomen, no palpable masses Genitourinary: no bladder fullness, no bladder tenderness, no renal bruits Neurologic: AAOx3 ICD10 Worksheet Patient Problems: Problems Problem Status Onset Abscess of neck Active Hypothyroidism Active Acute psychosis Acute Alcohol use disorder, severe, in controlled environment Acute Bipolar I disorder, severe, current or most recent episode manic, with anxious distress Acute Cannabis use disorder, severe, in controlled environment Acute
--- NOTE | 2018-12-17 16:38 | SOAPPROG ---
SOAP Progress Note Assessment/Plan: Assessment: 43yo CM with long hx SZA d/o and recent acute on chronic resp failure txf from [facility] after brief medical admission and stabilization. Incr disorganization and hypomania with inconsistent med compliance prior to admission. CURRENT PLAN: 12/16/18 17:19 1. Patient continues to present as disorganized, but able to participated in group activities. MD observed patient playing [employer] card game with staff and peer. 2. spoke at length with oupatient provider, Dr. Poon, who explained patient has h/o chronic, severe mental illness, including > 15 admissions to [facility]. She claims that at baseline he remains delusional and disorganized. She says patient never takes medications on his own. That's why [facility] gives patient his daily meds at their clinic M-. 3. Dr. Poon said that despite morbid obesity, poor diet and no exercise, patient has not been dx with DM. She had patient on metformin for prophylaxis. Patient had not taken insulin before this admission. Dr. Poon mentioned patient has not had elevated HgbA1c until this admission. explained his HgbA1c was 10.2 on 12/12 and his FSBS have regularly been > 200. Dr. Poon states patient will not be able to administer insulin. The ACT team at [facility] does not have the resources to monitor patient's diabetes and administer his current dose of insulin. agreed to d/w diabetes monitoring and treatment with hospitalist and provide recommendations for [facility] prior to d/c. 4. Treatment team will need to come up with reasonable plan to address both patient's psychiatric problems as well as his physical health issues. 5. Dr. Poon emphasized that despite the risks and possible adverse effects associated with dual antipsychotic medications, the severity of patient's psych condition and numerous prior psych admissions warranted Clozaril and IM Haldol. MD agreed to give patient his next scheduled dose of Haldol decanoate while he is in hospital. 6. [facility] 12/17/18 16:[address] Poon doesn't feel patient will be able to take insulin as outpatient. MD will d/w hospitalist prior to d/c. Patient will need referral to airplane pilot photogrammetry or PCP who specializes in treating DM and other medical comorbidities. An integrated primary behavioral health care clinic would be ideal. 2. Patient presents cheerful and disorganized. Dr. Poon says this is patient's baseline. 3. Likely to d/c next week when medical comorbidities are stable. 4. STC Subjective: Patient laughing and smiling with peers in day room. He is pleasant and cooperative with staff, but remains disorganized and confused about why he's here and what the problem is that brought him to hospital. Objective: Vital Signs Temp Pulse Resp BP Pulse Ox 36.6 C 118 H 16 137/81 H 90 L 12/17/18 06:00 12/17/18 06:00 12/17/18 06:00 12/17/18 06:00 12/17/18 06:00 Laboratory Results 12/12/18 14:26 MSE: Affect: Elevated Mood: "OK" TP: Disorganized TC: Denies any SI/HI Insight/Judgment: Poor - Time Spent With Patient Time Spent With Patient: 15" - Pending Discharge Pending Discharge Within 24 Hours: No Pending Discharge Within 48 Hours: No ICD10 Worksheet Patient Problems: Problems Problem Status Onset Abscess of neck Active Hypothyroidism Active Acute psychosis Acute Alcohol use disorder, severe, in controlled environment Acute Bipolar I disorder, severe, current or most recent episode manic, with anxious distress Acute Cannabis use disorder, severe, in controlled environment Acute
[2018-12-17] MEDS: SENNOSIDES 1 TAB PO SCH (17:51)
[2018-12-17] MEDS: cloZAPine 100 MG TAB PO SCH (20:40)
[2018-12-18] MEDS: INSULIN LISPRO 100 UNIT/ML SC SCH ×3 (08:22→18:11)
[2018-12-18] MEDS: INSULIN GLARGINE 100 UNITS/ML UNIT SC SCH (08:24)
[2018-12-18] MEDS: PANTOPRAZOLE SODIUM 40 MG TAB PO SCH (08:55)
[2018-12-18] MEDS: LEVOTHYROXINE 150 MCG TAB PO SCH (08:55)
[2018-12-18] MEDS: CARVEDILOL 6.25 MG TAB PO SCH ×2 (08:55→17:45)
[2018-12-18] MEDS: glipiZIDE 5 MG TAB PO SCH (09:25)
[2018-12-18] MEDS: metFORMIN HCL 500 MG TAB PO SCH ×3 (09:25→17:46)
--- NOTE | 2018-12-18 09:40 | HOSPPROG ---
Hospitalist Progress Note Assessment/Plan: 43-year-old male with schizoaffective disorder admitted to inpatient behavioral health for acute psychotic episode #Diabetes: bg slightly better but still elevated - concerns raised that patient will be unable to take insulin at discharge, thus, plan to optimize PO regimen - increase metformin to 1000mg bid - start glipizide 5mg daily, can increase to 7.5mg in a few days if tolerates , and then 10mg - will continue insulin regimen: glargine 22u, SSI with the knowledge that this likely won't be continued at discharge. if at all possible, would recommend long-acting insulin #HTN: bp controlled - continue coreg #Sinus tachycardia: persistent, very low concern for pe - on beta nehal as above #LUL: cpap ordered #Hypothyroid: continue LT4 replacement, tsh ok #GERD: on PPI #Acute psychosis: management per inpatient psych team Thank you for including us in the care this patient. we will continue to follow along. Subjective: No complaints this AM. Discussed with RN who has taken care of him for 20 years - notes that he will not be able to take insulin at discharge. This was also the psychiatrist's concern. Objective: Vital Signs Temp Pulse Resp BP Pulse Ox 37.1 C 104 H 14 134/84 H 91 L 12/18/18 04:34 12/18/18 04:34 12/18/18 04:34 12/18/18 04:34 12/18/18 04:34 Laboratory Results 12/12/18 14:26 - Physical Exam Constitutional: no apparent distress, obese Eyes: PERRL, anicteric sclera, EOMI Ears, Nose, Mouth, Throat: moist mucous membranes, hearing normal, ears appear normal, no oral mucosal ulcers Cardiovascular: regular rate and rhythym, no murmur, rub, or gallop Respiratory: no respiratory distress, no rales or rhonchi, clear to auscultation Gastrointestinal: normoactive bowel sounds, soft, non-tender abdomen, no palpable masses Genitourinary: no bladder fullness, no bladder tenderness, no renal bruits Skin: no rashes or abrasions, no fluctuance, no induration Musculoskeletal: full muscle strength, no muscle tenderness, normal joint ROM Neurologic: AAOx3 ICD10 Worksheet Patient Problems: Problems Problem Status Onset Abscess of neck Active Hypothyroidism Active Acute psychosis Acute Alcohol use disorder, severe, in controlled environment Acute Bipolar I disorder, severe, current or most recent episode manic, with anxious distress Acute Cannabis use disorder, severe, in controlled environment Acute
--- NOTE | 2018-12-18 17:21 | SOAPPROG ---
SOAP Progress Note Assessment/Plan: Assessment: 43yo CM with long hx SZA d/o and recent acute on chronic resp failure txf from [facility] after brief medical admission and stabilization. Incr disorganization and hypomania with inconsistent med compliance prior to admission. CURRENT PLAN: 12/16/18 17:19 1. Patient continues to present as disorganized, but able to participated in group activities. MD observed patient playing [employer] card game with staff and peer. 2. spoke at length with oupatient provider, Dr. Poon, who explained patient has h/o chronic, severe mental illness, including > 15 admissions to [facility]. She claims that at baseline he remains delusional and disorganized. She says patient never takes medications on his own. That's why [facility] gives patient his daily meds at their clinic M-. 3. Dr. Poon said that despite morbid obesity, poor diet and no exercise, patient has not been dx with DM. She had patient on metformin for prophylaxis. Patient had not taken insulin before this admission. Dr. Poon mentioned patient has not had elevated HgbA1c until this admission. explained his HgbA1c was 10.2 on 12/12 and his FSBS have regularly been > 200. Dr. Poon states patient will not be able to administer insulin. The ACT team at [facility] does not have the resources to monitor patient's diabetes and administer his current dose of insulin. agreed to d/w diabetes monitoring and treatment with hospitalist and provide recommendations for [facility] prior to d/c. 4. Treatment team will need to come up with reasonable plan to address both patient's psychiatric problems as well as his physical health issues. 5. Dr. Poon emphasized that despite the risks and possible adverse effects associated with dual antipsychotic medications, the severity of patient's psych condition and numerous prior psych admissions warranted Clozaril and IM Haldol. MD agreed to give patient his next scheduled dose of Haldol decanoate while he is in hospital. 6. [facility] 12/17/18 16:[address] Poon doesn't feel patient will be able to take insulin as outpatient. MD will d/w hospitalist prior to d/c. Patient will need referral to security patrol driver or PCP who specializes in treating DM and other medical comorbidities. An integrated primary behavioral health care clinic would be ideal. 2. Patient presents cheerful and disorganized. Dr. Poon says this is patient's baseline. 3. Likely to d/c next week when medical comorbidities are stable. 4. [facility] 12/18/18 17:17 1. Hospitalist, Dr. Maher, reviewed patient's case today. Psych and hospitalist team are concerned patient will not be compliant with insulin regimen when he is no longer in hospital. Dr. Maher recommends optimizing PO regimen, and has increased Metformin to 1000mg BID and added Glyburide. Plans to increase glyburide prior to d/c. 2. Psych MD discussed case with CC. It's possible that a home health agency might be able to administer long-acting insulin once patient discharges. CC will put in referral to [facility] to see if they can provide this service. 3. ACT team therapist, Renee, visited patient today. She says patient is "looking better" but still not at baseline. He has f/u with Dr. Poon on . Will likely stay in hospital until next Friday or Friday. 4. ACT team has keys to patient's apartment. Will need to coordinate with ACT prior to d/c. 5. ST Subjective: Patient presents stable, cheerful, disorganized. Patient's therapist, Renee, says he is looking "better" but still not at baseline yet. Will keep him in hospital for further stabilization and safety until next week. Hospitalist is working to optimize patient's oral regimen for treating his DM. Objective: Vital Signs Temp Pulse Resp BP Pulse Ox 37.1 C 104 H 14 134/84 H 91 L 12/18/18 04:34 12/18/18 04:34 12/18/18 04:34 12/18/18 04:34 12/18/18 04:34 Laboratory Results 12/12/18 14:26 MSE: Affect: Cheerful, pleasant Mood: "Good" TP: Disorganized, illogical TC: Denies any SI/HI, no paranoid delusions Perception: Denies any AH/VH Insight/ Judgment: Poor - Time Spent With Patient Time Spent With Patient: 15" - Pending Discharge Pending Discharge Within 24 Hours: No Pending Discharge Within 48 Hours: No ICD10 Worksheet Patient Problems: Problems Problem Status Onset Abscess of neck Active Hypothyroidism Active Acute psychosis Acute Alcohol use disorder, severe, in controlled environment Acute Bipolar I disorder, severe, current or most recent episode manic, with anxious distress Acute Cannabis use disorder, severe, in controlled environment Acute
[2018-12-18] MEDS: SENNOSIDES 1 TAB PO SCH (17:45)
[2018-12-18] MEDS: cloZAPine 100 MG TAB PO SCH (21:40)
[2018-12-19] MEDS: ACETAMINOPHEN 325 MG TAB PO PRN ×2 (05:40→20:49)
[2018-12-19] MEDS: metFORMIN HCL 500 MG TAB PO SCH ×2 (08:33→17:30)
[2018-12-19] MEDS: glipiZIDE 5 MG TAB PO SCH (08:34)
[2018-12-19] MEDS: CARVEDILOL 6.25 MG TAB PO SCH ×2 (08:34→17:29)
[2018-12-19] MEDS: PANTOPRAZOLE SODIUM 40 MG TAB PO SCH (08:34)
[2018-12-19] MEDS: INSULIN GLARGINE 100 UNITS/ML UNIT SC SCH (08:34)
[2018-12-19] MEDS: INSULIN LISPRO 100 UNIT/ML SC SCH ×3 (08:40→17:30)
[2018-12-19] MEDS: LEVOTHYROXINE 150 MCG TAB PO SCH (10:04)
--- NOTE | 2018-12-19 11:20 | ASMTCMCOM ---
CM Note CM Note Notes: Client presents the same as previous days, etc. Client is taking medication as well as speaking with peers at times. Client remains in his room through the days. Client denies any feelings of anxiety, depression, AVH, S/I or H/I. Client remains disorganized and gravely disabled. Date Signed: 12/19/2018 11:20 AM Electronically Signed By:Roberth Douglas. .Namrata.Keith.,R.P
--- NOTE | 2018-12-19 14:08 | HOSPPROG ---
Hospitalist Progress Note Assessment/Plan: 43-year-old male with schizoaffective disorder admitted to inpatient behavioral health for acute psychotic episode #Diabetes: bg slightly better but still elevated; a1c>10% - patient unable to take insulin at discharge (per PCP, psych), thus, plan to optimize PO regimen - increased metformin to 1000mg bid - started glipizide 5mg daily 12/18, will increase to 7.5mg tomorrow - will continue insulin regimen: glargine 22u, SSI with the knowledge that this likely won't be continued at discharge. - clozapine is likely contributing to weight gain and subsequent worsening insulin resistance; however, this medication may be necessary from a psychiatric stand point #Obesity: BMI 44. Per chart review, his weight has gone from ~130kg to 153kg since 03/2018 #HTN: bp controlled - continue coreg #Sinus tachycardia: persistent, very low concern for pe - on beta nehal as above #LUL: cpap ordered #Hypothyroid: continue LT4 replacement, tsh ok #GERD: on PPI #Acute psychosis: management per inpatient psych team Thank you for including us in the care this patient. we will continue to follow along. Subjective: Did not see today. Objective: Vital Signs Temp Pulse Resp BP Pulse Ox 36.8 C 107 H 16 123/82 H 92 12/19/18 06:00 12/19/18 08:34 12/19/18 06:00 12/19/18 08:34 12/19/18 06:00 Laboratory Results 12/12/18 14:26 ICD10 Worksheet Patient Problems: Problems Problem Status Onset Abscess of neck Active Hypothyroidism Active Acute psychosis Acute Alcohol use disorder, severe, in controlled environment Acute Bipolar I disorder, severe, current or most recent episode manic, with anxious distress Acute Cannabis use disorder, severe, in controlled environment Acute
[2018-12-19] MEDS: SENNOSIDES 1 TAB PO SCH (17:31)
--- NOTE | 2018-12-19 18:35 | SOAPPROG ---
SOAP Progress Note Assessment/Plan: Assessment: 43yo CM with long hx SZA d/o and recent acute on chronic resp failure txf from [facility] after brief medical admission and stabilization. Incr disorganization and hypomania with inconsistent med compliance prior to admission. CURRENT PLAN: 12/18/18 17:17 1. Hospitalist, Dr. Maher, reviewed patient's case today. Psych and hospitalist team are concerned patient will not be compliant with insulin regimen when he is no longer in hospital. Dr. Maher recommends optimizing PO regimen, and has increased Metformin to 1000mg BID and added Glyburide. Plans to increase glyburide prior to d/c. 2. Psych MD discussed case with CC. It's possible that a home health agency might be able to administer long-acting insulin once patient discharges. CC will put in referral to [facility] to see if they can provide this service. 3. ACT team therapist, Renee, visited patient today. She says patient is "looking better" but still not at baseline. He has f/u with Dr. Poon on . Will likely stay in hospital until next Friday or Friday. 4. ACT team has keys to patient's apartment. Will need to coordinate with ACT prior to d/c. 5. [facility] WEEKEND PLAN: 12/19/18 18:32 1. Hospitalist increased Glyburide. Other meds remain same. FSBS have decreased , but still elevated. 2. CC is working with ACT team at [facility] to provider home health care to administer daily insulin. 3. ACT team would like patient to d/c on Friday. They will give him his meds and take him back to his apartment. 4. Patient near baseline according to ACT therapist who saw him on Friday. 5. [facility] Subjective: Patient presents dishevelled, disorganized, but stable. His ACT therapist, Renee, saw him on 12/18/18 and reports he is close to baseline. His outpatient providers would like him to d/c on Friday. ACT will provide his meds and take him back to his apartment. Objective: Vital Signs Temp Pulse Resp BP Pulse Ox 36.8 C 92 16 142/82 H 92 12/19/18 06:00 12/19/18 17:29 12/19/18 06:00 12/19/18 17:29 12/19/18 06:00 Laboratory Results 12/12/18 14:26 MSE: Affect: Affable Mood: "OK" TP: Disorganized TC: Denies SI/HI, still delusional, but [facility] says this is baseline for him Insight/Judgment: Poor - Time Spent With Patient Time Spent With Patient: 15" - Pending Discharge Pending Discharge Within 24 Hours: No Pending Discharge Within 48 Hours: No ICD10 Worksheet Patient Problems: Problems Problem Status Onset Abscess of neck Active Hypothyroidism Active Acute psychosis Acute Alcohol use disorder, severe, in controlled environment Acute Bipolar I disorder, severe, current or most recent episode manic, with anxious distress Acute Cannabis use disorder, severe, in controlled environment Acute
[2018-12-19] MEDS: cloZAPine 100 MG TAB PO SCH (20:48)
[2018-12-20] MEDS: ACETAMINOPHEN 325 MG TAB PO PRN (05:37)
[2018-12-20] MEDS: glipiZIDE 5 MG TAB PO SCH (09:55)
[2018-12-20] MEDS: metFORMIN HCL 500 MG TAB PO SCH ×2 (09:55→17:16)
[2018-12-20] MEDS: LEVOTHYROXINE 150 MCG TAB PO SCH (09:56)
[2018-12-20] MEDS: CARVEDILOL 6.25 MG TAB PO SCH ×2 (09:56→17:26)
[2018-12-20] MEDS: INSULIN GLARGINE 100 UNITS/ML UNIT SC SCH (09:57)
[2018-12-20] MEDS: PANTOPRAZOLE SODIUM 40 MG TAB PO SCH (09:57)
[2018-12-20] MEDS: INSULIN LISPRO 100 UNIT/ML SC SCH ×3 (09:57→17:27)
--- NOTE | 2018-12-20 13:18 | HOSPPROG ---
Hospitalist Progress Note Assessment/Plan: 43-year-old male with schizoaffective disorder admitted to inpatient behavioral health for acute psychotic episode #Diabetes: bg better but still elevated; a1c>10% - patient unable to take insulin at discharge (per PCP, psych), thus, plan to optimize PO regimen. would benefit from at least being on long-acting insulin , if able - increased metformin to 1000mg bid - started glipizide 5mg daily 12/18, increased to 7.5mg today, consider increasing to 10mg in next 2-3 days - will continue insulin regimen: glargine 22u, SSI with the knowledge that this likely won't be continued at discharge. - clozapine is likely contributing to weight gain and subsequent worsening insulin resistance; however, this medication may be necessary from a psychiatric stand point #Obesity: BMI 44. Per chart review, his weight has gone from ~130kg to 153kg since 03/2018 #HTN: bp controlled - continue coreg #Sinus tachycardia: persistent, very low concern for pe - on beta nehal as above #LUL: cpap ordered #Hypothyroid: continue LT4 replacement, tsh ok #GERD: on PPI #Acute psychosis: management per inpatient psych team Thank you for including us in the care this patient. we will continue to follow along. Subjective: Did not see today. Objective: Vital Signs Temp Pulse Resp BP Pulse Ox 36.7 C 103 H 16 125/81 H 91 L 12/20/18 06:00 12/20/18 09:56 12/20/18 06:00 12/20/18 09:56 12/20/18 06:00 Laboratory Results 12/12/18 14:26 ICD10 Worksheet Patient Problems: Problems Problem Status Onset Abscess of neck Active Hypothyroidism Active Acute psychosis Acute Alcohol use disorder, severe, in controlled environment Acute Bipolar I disorder, severe, current or most recent episode manic, with anxious distress Acute Cannabis use disorder, severe, in controlled environment Acute
[2018-12-20] MEDS: SENNOSIDES 1 TAB PO SCH (17:17)
--- NOTE | 2018-12-20 17:51 | SOAPPROG ---
SOAP Progress Note Assessment/Plan: Assessment: 43yo CM with long hx SZA d/o and recent acute on chronic resp failure txf from [facility] after brief medical admission and stabilization. Incr disorganization and hypomania with inconsistent med compliance prior to admission. WEEKEND PLAN: 12/19/18 18:32 1. Hospitalist increased Glyburide. Other meds remain same. FSBS have decreased , but still elevated. 2. CC is working with ACT team at [facility] to provider home health care to administer daily insulin. 3. ACT team would like patient to d/c on Friday. They will give him his meds and take him back to his apartment. 4. Patient near baseline according to ACT therapist who saw him on Friday. 5. ST 12/20/18 17:49 1. Patient is on Glipizide, not glyburide. Current dose 7.5mg daily. 2. Also on metformin 1000mg BID. 3. CC still trying to coordinate with ACT team to provide home health that can administer Lantus dose in AM. 4. [place] aftercare would involve ACT team giving patient his psych meds, and home health service that can insure patient is taking metformin, glipizide and administer Lantus once/daily. 5. Patient continues to refuse to use CPAP machine at night. 6. Likely to d/c on Friday or Friday. ACT team will assist patient to return to his apartment. 7. ST Subjective: Patient is stable, calm and polite. He is disorganized, but ACT therapist and Dr. Poon both report this is patient's baseline. They state he continues to be delusional and disorganized at baseline. That's why they are concerned about him being able to take meds on his own. Currently ACT administers his psych meds , but they won't be able to give him his insulin. Hospitalist is optimizing oral agents while patient is in hospital in case he won't have resources necessary to maintain insulin regimen. CC is working with ACT to try to find home health service that can at least administer AM Lantus for patient when he leaves hospital. Objective: Vital Signs Temp Pulse Resp BP Pulse Ox 36.7 C 102 H 16 131/93 H 91 L 12/20/18 06:00 12/20/18 17:26 12/20/18 06:00 12/20/18 17:26 12/20/18 06:00 Laboratory Results 12/12/18 14:26 MSE: Affect: Cheerful, elevated Mood: "Good" TP: Disorganized, illogical TC: Denies SI/HI, still delusional Insight/Judgment: Poor - Time Spent With Patient Time Spent With Patient: 15" - Pending Discharge Pending Discharge Within 24 Hours: No Pending Discharge Within 48 Hours: No ICD10 Worksheet Patient Problems: Problems Problem Status Onset Abscess of neck Active Hypothyroidism Active Acute psychosis Acute Alcohol use disorder, severe, in controlled environment Acute Bipolar I disorder, severe, current or most recent episode manic, with anxious distress Acute Cannabis use disorder, severe, in controlled environment Acute
[2018-12-20] MEDS: cloZAPine 100 MG TAB PO SCH (22:21)
[2018-12-21] MEDS: glipiZIDE 5 MG TAB PO SCH (08:45)
[2018-12-21] MEDS: LEVOTHYROXINE 150 MCG TAB PO SCH (08:45)
[2018-12-21] MEDS: metFORMIN HCL 500 MG TAB PO SCH ×2 (08:45→16:40)
[2018-12-21] MEDS: PANTOPRAZOLE SODIUM 40 MG TAB PO SCH (08:45)
[2018-12-21] MEDS: INSULIN LISPRO 100 UNIT/ML SC SCH ×3 (08:46→16:40)
[2018-12-21] MEDS: CARVEDILOL 6.25 MG TAB PO SCH ×2 (08:46→16:40)
[2018-12-21] MEDS: INSULIN GLARGINE 100 UNITS/ML UNIT SC SCH (08:49)
--- NOTE | 2018-12-21 11:52 | ASMTCMCOM ---
CM Note CM Note Notes: CC checked in with ct. who was out of his room. Ct. said that he is doing fine. Ct. had questions about his discharge plan and CC discussed it with him. Date Signed: 12/21/2018 11:51 AM Electronically Signed By:Susan Daurte.[employer]
--- NOTE | 2018-12-21 15:44 | HOSPPROG ---
Hospitalist Progress Note Assessment/Plan: 43-year-old male with schizoaffective disorder admitted to inpatient behavioral health for acute psychotic episode #Diabetes: bg better, had one lower reading today; a1c>10% - patient unable to take insulin at discharge (per PCP, psych), thus, plan to optimize PO regimen. would benefit from at least being on long-acting insulin , if able - increased metformin to 1000mg bid - started glipizide 5mg daily 12/18, increased to 7.5mg, will hold off on increasing to 10mg for now with low bg - decrease glargine to 20u daily, continue SSI - I agree with psychiatrist assessment that ideal aftercare would involve taking metformin, glipizide, and lantus. - clozapine is likely contributing to weight gain and subsequent worsening insulin resistance; however, this medication may be necessary from a psychiatric stand point #Obesity: BMI 44. Per chart review, his weight has gone from ~130kg to 153kg since 03/2018 #HTN: bp controlled - continue coreg #Sinus tachycardia: persistent, very low concern for pe - on beta nehal as above #LUL: cpap ordered #Hypothyroid: continue LT4 replacement, tsh ok #GERD: on PPI #Acute psychosis: management per inpatient psych team Thank you for including us in the care this patient. we will continue to follow along. Subjective: Did not see patient. Objective: Vital Signs Temp Pulse Resp BP Pulse Ox 36.6 C 115 H 20 156/92 H 90 L 12/21/18 06:00 12/21/18 06:00 12/21/18 06:00 12/21/18 06:00 12/21/18 06:00 Laboratory Results 12/12/18 14:26 ICD10 Worksheet Patient Problems: Problems Problem Status Onset Abscess of neck Active Hypothyroidism Active Acute psychosis Acute Alcohol use disorder, severe, in controlled environment Acute Bipolar I disorder, severe, current or most recent episode manic, with anxious distress Acute Cannabis use disorder, severe, in controlled environment Acute
--- NOTE | 2018-12-21 16:07 | SOAPPROG ---
SOAP Progress Note Assessment/Plan: Assessment: Plan: 12/21/18 16:06 Mood/psychosis: Remains decompensated. Improving medically. Unclear what role the insulin will have after d/c. Will CCM, collaborate with MHP's and hospitalists. Subjective: Pt seen multiple times today, chart reviewed, discussed with staff. He is elevated, intrusive, inappropriate. He will suddenly shout out or sing loudly. He grabs me and pulls my shirt up to his nose to smell it. He tries to grab me several other times as well. He interrupts my interviews with other patients. MSE: Disheveled, agitated, intrusive. Affect is labile. Mood is "great." TP is disorganized. TC reveals bizarre and possibly grandiose delusions. Objective: Vital Signs Temp Pulse Resp BP Pulse Ox 36.6 C 107 H 20 158/100 H 90 L 12/21/18 06:00 12/21/18 15:57 12/21/18 06:00 12/21/18 15:57 12/21/18 06:00 Laboratory Results 12/12/18 14:26 - Time Spent With Patient Time Spent With Patient: 25" ICD10 Worksheet Patient Problems: Problems Problem Status Onset Abscess of neck Active Hypothyroidism Active Acute psychosis Acute Alcohol use disorder, severe, in controlled environment Acute Bipolar I disorder, severe, current or most recent episode manic, with anxious distress Acute Cannabis use disorder, severe, in controlled environment Acute
[2018-12-21] MEDS: SENNOSIDES 1 TAB PO SCH (16:40)
[2018-12-21] MEDS: cloZAPine 100 MG TAB PO SCH (20:15)
[2018-12-22] MEDS ORDERED: BUPIVACAINE/EPI 0.5% 30 ML SDV ONE (07:08)
[2018-12-22] MEDS ORDERED: POLYMYXIN B SULFATE 500,000 UNIT/10 ML SYR IRR ONE (07:09)
[2018-12-22] MEDS: glipiZIDE 5 MG TAB PO SCH (09:40)
[2018-12-22] MEDS: CARVEDILOL 6.25 MG TAB PO SCH ×2 (09:42→18:30)
[2018-12-22] MEDS: INSULIN GLARGINE 100 UNITS/ML UNIT SC SCH (09:43)
[2018-12-22] MEDS: PANTOPRAZOLE SODIUM 40 MG TAB PO SCH (09:43)
[2018-12-22] MEDS: metFORMIN HCL 500 MG TAB PO SCH ×2 (09:43→18:30)
[2018-12-22] MEDS: LEVOTHYROXINE 150 MCG TAB PO SCH (09:43)
[2018-12-22] MEDS: INSULIN LISPRO 100 UNIT/ML SC SCH ×3 (09:43→18:30)
--- NOTE | 2018-12-22 15:25 | SOAPPROG ---
SOAP Progress Note Assessment/Plan: Assessment: Plan: 12/21/18 16:06 Mood/psychosis: Remains decompensated. Improving medically. Unclear what role the insulin will have after d/c. Will CCM, collaborate with MHP's and hospitalists. 12/22/18 15:25 Mood/psychosis: Improved. CCM. Subjective: Pt seen, discussed with staff. Remains loud and intrusive, but more easily redirected. Able to participate in Treatment Team meeting. Agreeable to treatment, though insists he was told he would d/c today. I informed him that was not the case and he accepted this. He remains inappropriate with others, though this is close to baseline behavior for him. MSE: Disheveled, pleasant and interactive. Affect is elevated, expansive. Mood is "great." TP is disorganized. TC reveals grandiose and bizarre thoughts. Objective: Vital Signs Temp Pulse Resp BP Pulse Ox 36.5 C 110 H 16 130/81 H 92 12/22/18 06:00 12/22/18 09:42 12/22/18 06:00 12/22/18 09:42 12/22/18 06:00 Laboratory Results 12/12/18 14:26 - Time Spent With Patient Time Spent With Patient: 25" ICD10 Worksheet Patient Problems: Problems Problem Status Onset Abscess of neck Active Hypothyroidism Active Acute psychosis Acute Alcohol use disorder, severe, in controlled environment Acute Bipolar I disorder, severe, current or most recent episode manic, with anxious distress Acute Cannabis use disorder, severe, in controlled environment Acute
--- NOTE | 2018-12-22 16:35 | HOSPPROG ---
Hospitalist Progress Note Assessment/Plan: 43-year-old male with schizoaffective disorder admitted to inpatient behavioral health for acute psychotic episode #Diabetes: bg better; a1c>10% - may be difficult for patient to take insulin at dc, thus, plan to optimize PO regimen - bg much better controlled - would continue current regimen for now: metformin 1000 bid, glipizide 7.5 qd, glargine 20 qd, SSI - at discharge, I propose two options: (1) If will be discharging without insulin, would continue metformin 1000 bid and increase glipizide to 10mg qd (2) If able to take long-acting insulin at discharge, would continue metformin 1000 bid, glipizide 7.5mg qd, and continue glargine 20 units daily and stop his SSI #Obesity: BMI 44. Per chart review, his weight has gone from ~130kg to 153kg since 03/2018 #HTN: bp controlled - continue coreg #Sinus tachycardia: persistent, very low concern for pe - on beta nehal as above #LUL: cpap ordered #Hypothyroid: continue LT4 replacement, tsh ok #GERD: on PPI #Acute psychosis: management per inpatient psych team We will sign off. Please feel free to page/call the internal medicine pager with questions. Subjective: Did not see patient today. Objective: Vital Signs Temp Pulse Resp BP Pulse Ox 36.5 C 110 H 16 130/81 H 92 12/22/18 06:00 12/22/18 09:42 12/22/18 06:00 12/22/18 09:42 12/22/18 06:00 Laboratory Results 12/12/18 14:26 ICD10 Worksheet Patient Problems: Problems Problem Status Onset Abscess of neck Active Hypothyroidism Active Acute psychosis Acute Alcohol use disorder, severe, in controlled environment Acute Bipolar I disorder, severe, current or most recent episode manic, with anxious distress Acute Cannabis use disorder, severe, in controlled environment Acute
[2018-12-22] MEDS: SENNOSIDES 1 TAB PO SCH (18:30)
[2018-12-22] MEDS: cloZAPine 100 MG TAB PO SCH (20:42)
[2018-12-23] MEDS: PANTOPRAZOLE SODIUM 40 MG TAB PO SCH (09:26)
[2018-12-23] MEDS: metFORMIN HCL 500 MG TAB PO SCH ×2 (09:26→17:43)
[2018-12-23] MEDS: glipiZIDE 5 MG TAB PO SCH (09:27)
[2018-12-23] MEDS: INSULIN LISPRO 100 UNIT/ML SC SCH ×3 (09:28→16:18)
[2018-12-23] MEDS: CARVEDILOL 6.25 MG TAB PO SCH ×2 (09:28→17:43)
[2018-12-23] MEDS: INSULIN GLARGINE 100 UNITS/ML UNIT SC SCH (09:29)
[2018-12-23] MEDS: LEVOTHYROXINE 150 MCG TAB PO SCH (10:16)
--- NOTE | 2018-12-23 15:11 | SOAPPROG ---
SOAP Progress Note Assessment/Plan: Assessment: Plan: 12/21/18 16:06 Mood/psychosis: Remains decompensated. Improving medically. Unclear what role the insulin will have after d/c. Will [facility], collaborate with MHP's and hospitalists. 12/22/18 15:25 Mood/psychosis: Improved. CCM. 12/23/18 15:11 Mood/psychosis: Improved, but remains elevated, psychotic. I/J remain poor. Will [facility], monitor. Subjective: Pt seen, discussed with staff. He remains loud, elevated, intrusive. Affect is expansive, elevated. Mood is "great." TP is tangential. TC reveals grandiose, bizarre, and paranoid thoughts. Compliant with treatments. Able to meet with Treatment Team today and discuss treatment plan appropriately. Objective: Vital Signs Temp Pulse Resp BP Pulse Ox 36.7 C 95 16 138/77 H 90 L 12/23/18 06:00 12/23/18 09:28 12/23/18 06:00 12/23/18 09:28 12/23/18 06:00 Laboratory Results 12/12/18 14:26 - Time Spent With Patient Time Spent With Patient: 25" ICD10 Worksheet Patient Problems: Problems Problem Status Onset Abscess of neck Active Hypothyroidism Active Acute psychosis Acute Alcohol use disorder, severe, in controlled environment Acute Bipolar I disorder, severe, current or most recent episode manic, with anxious distress Acute Cannabis use disorder, severe, in controlled environment Acute
[2018-12-23] MEDS: SENNOSIDES 1 TAB PO SCH (17:42)
[2018-12-23] MEDS: cloZAPine 100 MG TAB PO SCH (20:01)
[2018-12-24] MEDS: metFORMIN HCL 500 MG TAB PO SCH ×2 (09:14→17:28)
[2018-12-24] MEDS: glipiZIDE 5 MG TAB PO SCH (09:15)
[2018-12-24] MEDS: CARVEDILOL 6.25 MG TAB PO SCH ×2 (09:15→17:28)
[2018-12-24] MEDS: PANTOPRAZOLE SODIUM 40 MG TAB PO SCH (09:15)
[2018-12-24] MEDS: INSULIN LISPRO 100 UNIT/ML SC SCH ×3 (09:16→17:32)
[2018-12-24] MEDS: INSULIN GLARGINE 100 UNITS/ML UNIT SC SCH (09:16)
[2018-12-24] MEDS: LEVOTHYROXINE 150 MCG TAB PO SCH (11:07)
[2018-12-24] MEDS: SENNOSIDES 1 TAB PO SCH (17:27)
--- NOTE | 2018-12-24 17:58 | SOAPPROG ---
SOAP Progress Note Assessment/Plan: Assessment: Plan: 12/21/18 16:06 Mood/psychosis: Remains decompensated. Improving medically. Unclear what role the insulin will have after d/c. Will [facility], collaborate with MHP's and hospitalists. 12/22/18 15:25 Mood/psychosis: Improved. CCM. 12/23/18 15:11 Mood/psychosis: Improved, but remains elevated, psychotic. I/J remain poor. Will [facility], monitor. 12/24/18 17:58 Mood/psychosis: Continued improvement. CCM. Subjective: Pt seen, discussed with staff. Reports feeling "great". States he wants to leave the hospital "so I can spend the weekend at my home sweet home." P's shelter case manager is reportedly coming tomorrow to reassess. Pt is agreeable to this. MSE: Animated, but not agitated. Affect is bright, smiling, possibly a bit elevated. Mood is "great." TP is generally linear. TC reveals no mention of grandiose or paranoid thoughts. Objective: Vital Signs Temp Pulse Resp BP Pulse Ox 36.4 C 107 H 16 137/96 H 94 12/24/18 06:00 12/24/18 09:15 12/24/18 06:00 12/24/18 09:15 12/24/18 06:00 Laboratory Results 12/12/18 14:26 - Time Spent With Patient Time Spent With Patient: 15" ICD10 Worksheet Patient Problems: Problems Problem Status Onset Abscess of neck Active Hypothyroidism Active Acute psychosis Acute Alcohol use disorder, severe, in controlled environment Acute Bipolar I disorder, severe, current or most recent episode manic, with anxious distress Acute Cannabis use disorder, severe, in controlled environment Acute
[2018-12-24] MEDS: cloZAPine 100 MG TAB PO SCH (21:06)
[2018-12-25] MEDS: metFORMIN HCL 500 MG TAB PO SCH ×2 (08:50→17:51)
[2018-12-25] MEDS: INSULIN GLARGINE 100 UNITS/ML UNIT SC SCH (08:51)
[2018-12-25] MEDS: INSULIN LISPRO 100 UNIT/ML SC SCH ×3 (08:51→17:53)
[2018-12-25] MEDS: glipiZIDE 5 MG TAB PO SCH (08:55)
[2018-12-25] MEDS: LEVOTHYROXINE 150 MCG TAB PO SCH (08:55)
[2018-12-25] MEDS: CARVEDILOL 6.25 MG TAB PO SCH ×2 (08:55→17:51)
[2018-12-25] MEDS: PANTOPRAZOLE SODIUM 40 MG TAB PO SCH (08:55)
--- NOTE | 2018-12-25 12:04 | ASMTCMCOM ---
CM Note CM Note Notes: Client continues to doing better than previous days. Client's welfare case worker is scheduled to stop by the unit to meet with the client to gauge if he is close to his baseline, etc. Client is loud at times, while speak with other peers. Client continues to take medications as prescribed. Discharge date depends on the information gathered from CW later today.* Date Signed: 12/25/2018 12:03 PM Electronically Signed By:Roberth Douglas. .Namrata.Keith.,R.P
--- NOTE | 2018-12-25 14:50 | ASMTCMCOM ---
CM Note CM Note Notes: CC spoke to client's CW regarding any discharge. She noted that when he is discharged to "bus him to the [place] office where his keys are located. CW asked how he is doing., etc. Client is mostly appropriate at times. Still trying to work over his medications. Poss. discharge later next week.* Date Signed: 12/25/2018 02:49 PM Electronically Signed By:Roberth Douglas. .Namrata.Keith.,R.P
[2018-12-25] MEDS: SENNOSIDES 1 TAB PO SCH (17:51)
--- NOTE | 2018-12-25 18:23 | SOAPPROG ---
SOAP Progress Note Assessment/Plan: Assessment: Plan: 12/21/18 16:06 Mood/psychosis: Remains decompensated. Improving medically. Unclear what role the insulin will have after d/c. Will [facility], collaborate with P's and hospitalists. 12/22/18 15:25 Mood/psychosis: Improved. [facility]. 12/23/18 15:11 Mood/psychosis: Improved, but remains elevated, psychotic. I/J remain poor. Will [facility], monitor. 12/24/18 17:58 Mood/psychosis: Continued improvement. [facility]. 12/25/18 18:23 Mood/psychosis: Doing well. Will [facility], await input for P re: d/c. Subjective: Pt seen, discussed with staff. Remains loud, verbose, but in good behavioral control. Continues to want to go home. Compliant with all meds and therapies. Awaiting visit from P manager rn case. MSE: Animated, coop. Speech is loud, mildly pressured. Affect is euthymic, stable. Mood is "good." TP is generally linear. TC reveals some continued grandiosity. Objective: Vital Signs Temp Pulse Resp BP Pulse Ox 36.4 C 107 H 16 137/96 H 94 12/24/18 06:00 12/24/18 09:15 12/24/18 06:00 12/24/18 09:15 12/24/18 06:00 Laboratory Results 12/12/18 14:26 - Time Spent With Patient Time Spent With Patient: 15" ICD10 Worksheet Patient Problems: Problems Problem Status Onset Abscess of neck Active Hypothyroidism Active Acute psychosis Acute Alcohol use disorder, severe, in controlled environment Acute Bipolar I disorder, severe, current or most recent episode manic, with anxious distress Acute Cannabis use disorder, severe, in controlled environment Acute
[2018-12-25] MEDS: cloZAPine 100 MG TAB PO SCH (21:35)
[2018-12-26] MEDS: PANTOPRAZOLE SODIUM 40 MG TAB PO SCH (08:25)
[2018-12-26] MEDS: metFORMIN HCL 500 MG TAB PO SCH ×2 (08:25→17:27)
[2018-12-26] MEDS: LEVOTHYROXINE 150 MCG TAB PO SCH (08:25)
[2018-12-26] MEDS: INSULIN LISPRO 100 UNIT/ML SC SCH ×3 (08:26→17:27)
[2018-12-26] MEDS: glipiZIDE 5 MG TAB PO SCH (08:26)
[2018-12-26] MEDS: INSULIN GLARGINE 100 UNITS/ML UNIT SC SCH (08:26)
[2018-12-26] MEDS: CARVEDILOL 6.25 MG TAB PO SCH ×2 (08:27→17:28)
--- NOTE | 2018-12-26 11:16 | SOAPPROG ---
SOAP Progress Note Assessment/Plan: Assessment; 43yo CM with long hx SZA d/o and recent acute on chronic resp failure txf from [facility] after brief medical admission and stabilization. Incr disorganization and hypomania with inconsistent med compliance prior to admission. Restarted on home meds including Clozaril 350mg hs. PER DR. HOFFMAN: 12/25/18 18:23 Mood/psychosis: Doing well. Will CCM, await input for [facility] re: d/c. Subjective: Pt seen, discussed with staff. Remains loud, verbose, but in good behavioral control. Continues to want to go home. Compliant with all meds and therapies. Awaiting visit from [facility] clinical case manager. MSE: Animated, coop. Speech is loud, mildly pressured. Affect is euthymic, stable. Mood is "good." TP is generally linear. TC reveals some continued grandiosity. 12/26/18 11:14 Slept 6.5 hrs. no new issues. stabilizing gradually. compliant with meds. awaiting coordination with [facility] for d/c. denied medical complaints. MSE: pleasant, engaging appropriately for brief interview. mood "fine," affect euthymic, tp/tc- no overt delusions on brief interaction. did not appear RIS, and denied any psychotic sxs, denied SI/HI. hoping for d/c soon PLAN: cont current meds Objective: Vital Signs Temp Pulse Resp BP Pulse Ox 36.9 C 117 H 18 144/101 H 90 L 12/26/18 05:23 12/26/18 05:23 12/26/18 05:23 12/26/18 05:23 12/26/18 05:23 Laboratory Results 12/12/18 14:26 - Time Spent With Patient Time Spent With Patient: 10min - Pending Discharge Pending Discharge Within 24 Hours: No ICD10 Worksheet Patient Problems: Problems Problem Status Onset Abscess of neck Active Hypothyroidism Active Acute psychosis Acute Alcohol use disorder, severe, in controlled environment Acute Bipolar I disorder, severe, current or most recent episode manic, with anxious distress Acute Cannabis use disorder, severe, in controlled environment Acute
--- NOTE | 2018-12-26 12:50 | ASMTCMCOM ---
CM Note CM Note Notes: CC checked in with ct. who was singing at the top of his voice. Ct. reported that he is doing well. He said that his ACT therapist visited him yesterday and that the plan is to discharge him Mon. Therapist will pick him up. Date Signed: 12/26/2018 12:49 PM Electronically Signed By:Susan Duarte.[facility]
[2018-12-26] MEDS: SENNOSIDES 1 TAB PO SCH (17:27)
[2018-12-26] MEDS: cloZAPine 100 MG TAB PO SCH (20:15)
[2018-12-27] MEDS: LORazepam 0.5 MG TAB PO PRN (01:03)
[2018-12-27] MEDS: glipiZIDE 5 MG TAB PO SCH (08:25)
[2018-12-27] MEDS: PANTOPRAZOLE SODIUM 40 MG TAB PO SCH (08:25)
[2018-12-27] MEDS: metFORMIN HCL 500 MG TAB PO SCH ×2 (08:25→17:12)
[2018-12-27] MEDS: CARVEDILOL 6.25 MG TAB PO SCH ×2 (08:26→17:13)
[2018-12-27] MEDS: INSULIN GLARGINE 100 UNITS/ML UNIT SC SCH (08:26)
[2018-12-27] MEDS: INSULIN LISPRO 100 UNIT/ML SC SCH ×3 (08:34→17:39)
[2018-12-27] MEDS: LEVOTHYROXINE 150 MCG TAB PO SCH (10:58)
[2018-12-27] MEDS: SENNOSIDES 1 TAB PO SCH (17:12)
[2018-12-27] MEDS: cloZAPine 100 MG TAB PO SCH (20:24)
--- NOTE | 2018-12-28 04:54 | SOAPPROG ---
SOAP Progress Note Assessment/Plan: Assessment; 43yo CM with long hx SZA d/o and recent acute on chronic resp failure txf from [facility] after brief medical admission and stabilization. Incr disorganization and hypomania with inconsistent med compliance prior to admission. Restarted on home meds including Clozaril 350mg hs. PER DR. HOFFMAN: 12/25/18 18:23 Mood/psychosis: Doing well. Will CCM, await input for [facility] re: d/c. Subjective: Pt seen, discussed with staff. Remains loud, verbose, but in good behavioral control. Continues to want to go home. Compliant with all meds and therapies. 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 MSE: Animated, coop. Speech is loud, mildly pressured. Affect is euthymic, stable. Mood is "good." TP is generally linear. TC reveals some continued grandiosity. 12/26/18 11:14 Slept 6.5 hrs. no new issues. stabilizing gradually. compliant with meds. awaiting coordination with [facility] for d/c. denied medical complaints. MSE: pleasant, engaging appropriately for brief interview. mood "fine," affect euthymic, tp/tc- no overt delusions on brief interaction. did not appear RIS, and denied any psychotic sxs, denied SI/HI. hoping for d/c soon PLAN: cont current meds 12/27/18 15:47 late entry slept 5hr pt reports he has finally been sleeping well through the night last couple of nights no physical complaints. prefers not to wear CPAP, not tolerated. denies med s/e. noted with persistent sinus tachycardia also had BP med held this evening b/c low/nml BP. mse: cooperative, engaging, smiling. nml speech rate/vol, mood "pretty good", affect full. denied si/hi. denied ah/vh. tp/jb-cjbr-zhdndglk responses PLAN: cont current meds apparently at baseline re: medical issues- refer to hospitalist note, recently seen 12/21 \\ Objective: Vital Signs Temp Pulse Resp BP Pulse Ox 36.9 C 118 H 16 108/59 L 91 L 12/26/18 05:23 12/27/18 06:00 12/27/18 06:00 12/27/18 17:13 12/27/18 06:00 Laboratory Results 12/12/18 14:26 - Time Spent With Patient Time Spent With Patient: 10min ICD10 Worksheet Patient Problems: Problems Problem Status Onset Abscess of neck Active Hypothyroidism Active Acute psychosis Acute Alcohol use disorder, severe, in controlled environment Acute Bipolar I disorder, severe, current or most recent episode manic, with anxious distress Acute Cannabis use disorder, severe, in controlled environment Acute
[2018-12-28] MEDS: INSULIN GLARGINE 100 UNITS/ML UNIT SC SCH (08:21)
[2018-12-28] MEDS: glipiZIDE 5 MG TAB PO SCH (08:21)
[2018-12-28] MEDS: INSULIN LISPRO 100 UNIT/ML SC SCH ×3 (08:21→18:06)
[2018-12-28] MEDS: metFORMIN HCL 500 MG TAB PO SCH ×2 (08:22→17:14)
[2018-12-28] MEDS: CARVEDILOL 6.25 MG TAB PO SCH ×2 (08:22→17:15)
[2018-12-28] MEDS: PANTOPRAZOLE SODIUM 40 MG TAB PO SCH (08:23)
[2018-12-28] MEDS: LEVOTHYROXINE 150 MCG TAB PO SCH (11:26)
--- NOTE | 2018-12-28 13:23 | ASMTCMCOM ---
CM Note CM Note Notes: This marketing underwriter coordinated follow up appointments with [facility] Inpatient Liaison. The patient is eager to discharge although he agrees that his appointments should be confirmed and arrangements made for him to retrieve his keys in order to return home. Date Signed: 12/28/2018 01:22 PM Electronically Signed By:Noreen Mcgarry. Elina PABON,R-YURIDIAT
--- NOTE | 2018-12-28 14:30 | ASMTBHDC ---
Notes Note: Notes: Per Hospital liaison: We do med monitoring for him, which means we need to have you all call his meds in to [facility] (will need a hard copy coming w/him for the insulin) and ask that they be sent to [facility] for packing? [facility] # is [phone]. We are too late today to get the meds delivered from [facility] to [facility] for his meds to be monitored. Date Signed: 12/28/2018 02:29 PM Electronically Signed By:Roberth Douglas. .Namrata.Keith.,R.P
--- NOTE | 2018-12-28 15:37 | SOAPPROG ---
SOAP Progress Note Assessment/Plan: Assessment: Plan: 12/21/18 16:06 Mood/psychosis: Remains decompensated. Improving medically. Unclear what role the insulin will have after d/c. Will [facility], collaborate with [facility]'s and hospitalists. 12/22/18 15:25 Mood/psychosis: Improved. [facility]. 12/23/18 15:11 Mood/psychosis: Improved, but remains elevated, psychotic. I/J remain poor. Will [facility], monitor. 12/24/18 17:58 Mood/psychosis: Continued improvement. [facility]. 12/25/18 18:23 Mood/psychosis: Doing well. Will [facility], await input for [facility] re: d/c. 12/28/18 15:37 Mood/psychosis: No interval change. Will finalize d/c plan. [facility]. Subjective: Pt seen, discussed with staff, chart reviewed. Offers no c/o's except wanting to leave. I informed him that we will d/c him as soon as plans are finalized with [facility]'s. He is accepting of this. No behavioral issues over the WE. Calm and coop. today. MSE: Calm, coop. Affect is stable. Mood is 'good." TP is generally linear with some excursions into delusional processes. TC reveals continued grandiose , paranoid and bizarre delusions. No SI/HI/. Objective: Vital Signs Temp Pulse Resp BP Pulse Ox 36.9 C 123 H 14 136/97 H 91 L 12/26/18 05:23 12/28/18 06:00 12/28/18 06:00 12/28/18 06:00 12/28/18 06:00 Laboratory Results 12/12/18 14:26 - Time Spent With Patient Time Spent With Patient: 15" ICD10 Worksheet Patient Problems: Problems Problem Status Onset Abscess of neck Active Hypothyroidism Active Acute psychosis Acute Alcohol use disorder, severe, in controlled environment Acute Bipolar I disorder, severe, current or most recent episode manic, with anxious distress Acute Cannabis use disorder, severe, in controlled environment Acute
[2018-12-28] MEDS: SENNOSIDES 1 TAB PO SCH (17:13)
[2018-12-28] MEDS: cloZAPine 100 MG TAB PO SCH (21:44)
[2018-12-29 06:19] VITALS: BP 128/87
[2018-12-29] MEDS: ACETAMINOPHEN 325 MG TAB PO PRN (07:09)
[2018-12-29] MEDS: INSULIN LISPRO 100 UNIT/ML SC SCH ×2 (08:28→11:58)
[2018-12-29] MEDS: CARVEDILOL 6.25 MG TAB PO SCH (08:31)
[2018-12-29] MEDS: LEVOTHYROXINE 150 MCG TAB PO SCH (08:31)
[2018-12-29] MEDS: glipiZIDE 5 MG TAB PO SCH (08:31)
[2018-12-29] MEDS: INSULIN GLARGINE 100 UNITS/ML UNIT SC SCH (08:31)
[2018-12-29] MEDS: PANTOPRAZOLE SODIUM 40 MG TAB PO SCH (08:34)
[2018-12-29] MEDS: metFORMIN HCL 500 MG TAB PO SCH (08:34)
--- NOTE | 2018-12-29 18:05 | BDS ---
[f rep st] BEHAVIORAL HEALTH DISCHARGE SUMMARY REASON FOR ADMISSION: Patient is a 43-year-old male with a history of schizoaffective diso rder, bipolar type. He also has numerous medical illnesses and was recently hospitalized at [facility] for respiratory issues and hyperglycemia. Once medically stabilized, he was noted t o be very agitated and disorganized and was transferred to our facility for further psychiatric stabi lization. A full description of the events preceding admission can be found in Dr. Couch' admission note dated 12/12/2018. ADMITTING DIAGNOSES: Per Dr. Couch, include: 1. Schizoaffective disorder, bipolar type. 2. Alcohol use disorder, unspecified. 3. Hypothyroidism. 4. Chronic obstructive pulmonary disease. 5. Obstructive sleep apnea. 6. Hypoventilation syndrome. 7. Diabetes. 8. Hypertension. 9. Gastroesophageal reflux disease. ADMITTING PHYSICAL EXAMINATION: Performed by Dr. Simms, revealed tachycardia. No other acute physi miguel a findings. ADMISSION LABORATORY: CBC was normal. Serum chemistries were not drawn, but glucose was elevated at 182. HOSPITAL COURSE: Patient is admitted to [facility] inpatient unit on a transfer of [facility] long-term certification. He was continued on his previous outpatient medications including his pr imary antipsychotic, clozapine at 350 mg. He was agitated, loud, hyperverbal, intrusive, and impulsi ve. He knows me fairly well and he attempted to hug me and attempted at one point to take my shirt o ff and smell me. He was not aggressive, just inappropriately affectionate. At any rate, he was able to be verbally redirected and at no time displayed any physical aggression. He was compliant with [facility] medications throughout his stay. I was in contact with the liaison for [facility] and at one point, with Dr. Poon, patient's outpatient psychiatrist. We were all in agreement to continue his medicines as prior to admission. Patient's hospitalization was uncomplicated. He reconstituted fairly rapidly. His medical issues st abilized with no respiratory problems and his glucoses stayed below 200. He was started on insulin w hile in the hospital and this was continued both with the Lantus 10 units in the morning and then als o a sliding scale. He did not typically get much of the sliding scale, however. I communicated with [facility] at the time of discharge and they stated that they would communicate with his outpati ent nurse to determine whether they should give him a vial or a pen and to figure out what type of tr aining he was going to require. CONDITION AT DISCHARGE: Stable. He was displaying euthymic, stable, and appropriate affect. He was motivated to leave and looking forward to seeing his outpatient providers. DISCHARGE MEDICATIONS: Included clozapine 350 mg at bedtime, metformin 500 mg b.i.d., Senna 4 tablet s at 1800, Coreg 6.25 mg b.i.d., Lantus insulin 10 units subcutaneously daily, haloperidol 200 mg IM every 30 days, omeprazole 40 mg daily, levothyroxine 150 mcg daily. DISCHARGE DIAGNOSES: 1. Schizoaffective disorder, chronic, with acute exacerbation. 2. Obesity. 3. Sleep apnea. 4. Chronic obstructive pulmonary disease. 5. Insulin-dependent diabetes. DISPOSITION: Patient left the hospital via Lyft to go to his outpatient appointment in [place] with [facility]. Attitude at discharge was happy. He was cheerful and friendly as he walked off the unit. Patient was given written dates and times of his appointments and cab directly to them. Patient was Full Code throughout his stay. Patient was maintained on his long-term certification throughout his stay and he was transferred back to [facility] at the time of his discharge. Patient participated in alcohol, tobacco, cannabis, and metabolic screenings and received brief inter ventional counseling, though declined further followup for these. /[id number]/MODL
== END 2018-12-29 13:13 | disposition home or self-care (01) | DRG 885 ==
LOC: BBEH 17:01
PROVIDERS: ADMIT Psychiatry & Neurology Psychiatry; ATTEND Psychiatry & Neurology Psychiatry
DX: F25.0 Schizoaffective disorder, bipolar type (principal); Z68.41 Body mass index [BMI] 40.0-44.9, adult; E66.01 Morbid (severe) obesity due to excess calories; G47.33 Obstructive sleep apnea (adult) (pediatric); J44.9 Chronic obstructive pulmonary disease, unspecified; E11.9 Type 2 diabetes mellitus without complications; E03.9 Hypothyroidism, unspecified; I10 Essential (primary) hypertension; K21.9 Gastro-esophageal reflux disease without esophagitis; Z79.84 Long term (current) use of oral hypoglycemic drugs
CPT/HCPCS: J1631; J1815